=== PATIENT | female | born 1970 | race African-American/Black ===

== ENCOUNTER 2017-02-11 15:36 | Inpatient (IN) | payer OTHER ==
[2017-02-11 19:43] VITALS: BMI 24.5
--- NOTE | 2017-02-11 20:33 | HP ---
COWS - Scale Resting Pulse: 1= OR 81-100 Sweatin=Flushed/Facial Moisture Restless Observation: 3= Extraneous Movement Pupil Size: 1= Pupils >than Normal Bone or Joint Aches: 2= Severe Diffuse Aches Runny Nose/ Eye Tearin= Runny Nose/Eyes GI Upset > 30mins: 2= Nausea/Diarrhea Tremor Observation: 2= Slight Tremor Visible Yawning Observation: 1= 1-2x During Session Anxiety or Irritability: 2=Irritable/Anxious Goose Flesh Skin: 0=Smooth Skin COWS Score: 18 CIWA Score - CIWA Score Nausea/Vomitin Muscle Tremors: 2 Anxiety: 3 Agitation: 2 Paroxysmal Sweats: 1-Minimal Palms Moist Orientation: 0-Oriented Tacttile Disturbances: 2-Mild Itch/Numbness/Burn Auditory Disturbances: 1-Very Mild Visual Disturbances: 1-Very Mild Sensitivity Headache: 1-Very Mild CIWA-Ar Total Score: 15 Admission ROS S - HPI Chief Complaint: WITHDRAWAL SYMPTOMS Allergies/Adverse Reactions: Allergies Allergy/AdvReac Type Severity Reaction Status Date / Time No Known Drug Allergies Allergy Verified 02/11/17 19:52 ALL NUTS Allergy Severe Hives Uncoded 02/11/17 19:57 History of Present Illness: 46 Y.O. WOMAN WITH A HISTORY OF OPIATE, BENZODIAZEPINE, ALCOHOL, COCAINE AND MARIJUANA DEPENDENCE IS HERE SEEKING DETOX. CLIENT HAS BEEN PRESCRIBED 30MG OF OXYCODONE FOR THE LAST YEAR BY HER PCP (VERIFIED THRU [employer]) AND SHE LAST RECEIVED WAS PRESCRIBED 90 TABLETS ON 01/09/17. PT. STATED SHE WAS TAKING MORE OF THE MEDICATION THAN IS PRESCRIBED AND BROUGHT IN A EMPTY BOTTLE. SHE STATES THAT HER PCP ADVISED HER TO SEEK DETOX SERVICES AND STATES SHE WILL NO LONGER BE RECEIVING THE OXYCODONE PRESCRIPTION. PT. IS C/O WITHDRAWAL SYMPTOMS. . Exam Limitations: No Limitations - Ebola screening Have you traveled outside of the country in the last 21 days: No (N) Have you had contact with anyone from an Ebola affected area: No Have you been sick,other than usual withdrawal symptoms: No Do you have a fever: No - Review of Systems Constitutional: Chills, Loss of Appetite, Changes in sleep, Unexplained wgt Loss EENT: reports: Blurred Vision, Double Vision, Tearing, Nose Congestion Respiratory: reports: Cough, Shortness of Breath Cardiac: reports: No Symptoms Reported GI: reports: Constipated : reports: No Symptoms Reported Musculoskeletal: reports: Back Pain, Joint Pain, Joint Swelling Integumentary: reports: No Symptoms Reported Neuro: reports: Numbness, Tingling, Tremors Endocrine: reports: No Symptoms Reported Hematology: reports: Easy Bleeding, Easy Bruising Psychiatric: reports: Orientated x3, Anxious, Depressed, other (BIPOLAR AND SCHIZOPHRENIA) Other Systems: Reviewed and Negative Patient History - Patient Medical History Hx Anemia: No Hx Asthma: Yes Hx Chronic Obstructive Pulmonary Disease (COPD): No Hx Cancer: No Hx Cardiac Disorders: No Hx Congestive Heart Failure: No Hx Hypertension: No Hx Hypercholesterolemia: No Hx Pacemaker: No HX Cerebrovascular Accident: No Hx Seizures: No Hx Dementia: No Hx Diabetes: No Hx Gastrointestinal Disorders: Yes (gastric ulcer) Hx Liver Disease: No Hx Genitourinary Disorders: No Hx Sexually Transmitted Disorders: No Hx Renal Disease (ESRD): No Hx Thyroid Disease: No Hx Human Immunodeficiency Virus (HIV): No Hx Hepatitis C: No Hx Depression: Yes Hx Suicide Attempt: No Hx Bipolar Disorder: Yes Hx Schizophrenia: No - Patient Surgical History Past Surgical History: No Hx Neurologic Surgery: No Hx Cataract Extraction: No Hx Cardiac Surgery: No Hx Lung Surgery: No Hx Breast Surgery: No Hx Breast Biopsy: No Hx Abdominal Surgery: No Hx Appendectomy: No Hx Cholecystectomy: No Hx Genitourinary Surgery: No Hx Section: No Hx Orthopedic Surgery: No Anesthesia Reaction: No - PPD History Previous Implant?: Yes Documented Results: Negative w/o proof Date: 09/21/12 Results: 0mm PPD to be Administered?: Yes - Reproductive History Patient is a Female of Child Bearing Age (11 -55 yrs old): No Last Menstrual Period: 02/09/17 Patient : No - Smoking Cessation Smoking history: Current every day smoker Have you smoked in the past 12 months: Yes Aproximately how many cigarettes per day: 20 Hx Chewing Tobacco Use: No Initiated information on smoking cessation: Yes 'Breaking Loose' booklet given: 02/11/17 - Substance & Tx. History Hx Alcohol Use: Yes Hx Substance Use: Yes Substance Use Type: Alcohol, Cocaine, Marijuana, Opiates, Prescribed Hx Substance Use Treatment: Yes (REHAB: 2014) - Substances Abused Alprazolam (Xanax) Route: Oral Frequency: Daily Amount used: 2 sticks Age of first use: 40 Date of Last Use: 02/09/17 Cocaine Route: Smoking Frequency: Daily Amount used: $100 Age of first use: 25 Date of Last Use: 02/11/17 Marijuana/Hashish Route: Smoking Frequency: Daily Amount used: $30 Age of first use: 25 Date of Last Use: 02/11/17 Alcohol Route: Oral Frequency: Daily Amount used: vodka 1 pint Age of first use: 14 Date of Last Use: 02/11/17 oxycodone Route: Oral Frequency: Daily Amount used: 30mg Age of first use: 25 Date of Last Use: 02/09/17 Family Disease History - Family Disease History Family Disease History: Other: Father (DRUG,ALCOHOL), Mother (DRUG,ALCOHOL,MS, SCIZOPHRENIA) Admission Physical Exam [facility] - Vital Signs Vital Signs: Vital Signs - 24 hr 02/11/17 19:40 Temperature 98.3 F Pulse Rate 83 Respiratory 18 Rate Blood Pressure 100/75 - Physical General Appearance: Yes: Irritable, Anxious HEENTM: Yes: Hearing grossly Normal, Normocephalic Respiratory: Yes: Chest Non-Tender, Lungs Clear, Normal Breath Sounds, No Respiratory Distress, No Accessory Muscle Use Neck: Yes: No masses,lesions,Nodules Breast: Yes: Breast Exam Deferred Cardiology: Yes: Regular Rhythm, Regular Rate Abdominal: Yes: Normal Bowel Sounds, Non Tender Genitourinary: Yes: Other Back: Yes: Within Normal Limits, Normal Inspection Musculoskeletal: Yes: Back pain, Joint swelling, Muscle Pain, Muscle weakness Extremities: Yes: Normal Inspection, Normal Range of Motion, Non-Tender Neurological: Yes: Numbness Integumentary: Yes: Normal Color, Dry, Warm Lymphatic: Yes: Within Normal Limits - Diagnostic (1) Alcohol dependence with uncomplicated withdrawal Current Visit: Yes Status: Chronic (2) Opioid dependence with withdrawal Current Visit: Yes Status: Chronic (3) Sedative, hypnotic or anxiolytic dependence with withdrawal, uncomplicated Current Visit: Yes Status: Chronic (4) Asthma Current Visit: Yes Status: Chronic (5) Cocaine dependence Current Visit: Yes Status: Chronic (6) Marijuana dependence Current Visit: Yes Status: Chronic (7) Rheumatoid arthritis Current Visit: Yes Status: Chronic (8) SLE (systemic lupus erythematosus) Current Visit: Yes Status: Chronic Cleared for Admission [facility] - Detox or Rehab [facility] Level of Care: Medically Managed Detox Regimen/Protocol: Methadone/Valium [facility] Breath Alcohol Content Breath Alcohol Content: 0.025 Urine Pregancy Test - Result Urine Test Results: Negative- NO Line Present Urine Drug Screen - Results Drug Screen Negative: No Urine Drug Screen Results: THC-Marijuana, YADIRA-Cocaine, BZO-Benzodiazepines, OXY- Oxycodone
[2017-02-11] MEDS ORDERED: MENTHOL/PHENOL 1 EACH UD MM PRN (20:44)
[2017-02-11] MEDS ORDERED: LOPERAMIDE HCL 2 MG CAPSULE PO PRN (20:44)
[2017-02-11] MEDS ORDERED: guaiFENesin/D-METHORPHAN HB 10 ML UNIT-DOSE CUPS PO PRN (20:44)
[2017-02-11] MEDS ORDERED: P-EPHED 60MG/TRIPROLIDI 2.5MG TABLET PO PRN (20:44)
[2017-02-11] MEDS ORDERED: MAG HYDROX/AL HYDROX/SIMETH 30 ML UNIT-DOSE CUP PO PRN (20:44)
[2017-02-11] MEDS ORDERED: METHADONE HCL 10 MG TABLET (FOR DETOX USE ONLY) PO ONE ×2 (20:44→23:00)
[2017-02-11] MEDS ORDERED: ACETAMINOPHEN 325 MG TABLET (FP) PO PRN (20:44)
[2017-02-11] MEDS ORDERED: MAGNESIUM HYDROX 2400MG/30ML ORAL SUSPENSION 30 ML CUP PO PRN (20:44)
[2017-02-11] MEDS ORDERED: hydrOXYzine PAMOATE 50 MG CAPSULE (FP) PO PRN (20:44)
[2017-02-11] MEDS ORDERED: MAGNESIUM CITRATE 300 ML BOTTLE PO PRN (20:44)
[2017-02-11] MEDS ORDERED: diazePAM 5 MG TABLET PO ONE (20:44)
[2017-02-11] MEDS ORDERED: NICOTINE POLACRILEX 2 MG GUM BC PRN (20:44)
[2017-02-11] MEDS ORDERED: IBUPROFEN 400 MG TABLET (FP) PO PRN (20:44)
[2017-02-11] MEDS ORDERED: ALBUTEROL SO4 18 GM HFA INHALER IH PRN (20:47)
[2017-02-11 23:51] LABS: URINE APPEARANCE CLEAR; URINE BILIRUBIN NEGATIVE (NEGATIVE); URINE BLOOD NEGATIVE (NEGATIVE); URINE COLOR LT. YELLOW; URINE GLUCOSE (UA) NEGATIVE (NEGATIVE); URINE KETONE TRACE (NEGATIVE); URINE NITRITE NEGATIVE (NEGATIVE); URINE PROTEIN TRACE (NEGATIVE); URINE UROBILINOGEN 0.2 mg/dL (0.2-1.0)
[2017-02-12] MEDS: diazePAM 5 MG TABLET PO SCH ×4 (07:03→22:31)
--- NOTE | 2017-02-12 08:58 | EKG ---
Test Reason : Blood Pressure : / mmHG Vent. Rate : 076 BPM Atrial Rate : 076 BPM P-R Int : 134 ms QRS Dur : 082 ms QT Int : 414 ms P-R-T Axes : 068 056 061 degrees QTc Int : 465 ms NORMAL SINUS RHYTHM NORMAL ECG NO PREVIOUS ECGS AVAILABLE Confirmed by LUIS ANTONIO FIORE, ANYI ([id number]) on 02/12/2017 8:58:02 AM Referred By: Confirmed By:ANYI SALMON MD
--- NOTE | 2017-02-12 08:58 | PN ---
[facility] CIWA - CIWA Score Nausea/Vomitin-Mild Nausea/No Vomiting Muscle Tremors: 3 Anxiety: 3 Agitation: 3 Paroxysmal Sweats: 1-Minimal Palms Moist Orientation: 0-Oriented Tacttile Disturbances: 0-None Auditory Disturbances: 0-None Visual Disturbances: 0-None Headache: 0-None Present CIWA-Ar Total Score: 11 [facility] COWS - Scale Resting Pulse: 1= HI 81-100 Sweatin= Chills/Flushing Restless Observation: 1= Difficult to Sit Still Pupil Size: 0= Normal to Room Light Bone or Joint Aches: 2= Severe Diffuse Aches Runny Nose/ Eye Tearin= Runny Nose/Eyes GI Upset > 30mins: 2= Nausea/Diarrhea Tremor Observation of Outstretched Hands: 2= Slight Tremor Visible Yawning Observation: 1= 1-2x During Session Anxiety or Irritability: 2=Irritable/Anxious Goose Flesh Skin: 0=Smooth Skin COWS Score: 14 [facility] Progress Note (SOAP) Subjective: sweat aggitation tremor anxiety Objective: 02/12/17 09:04 Vital Signs Temperature 98.4 F 02/12/17 06:18 Pulse Rate 85 02/12/17 06:18 Respiratory Rate 18 02/12/17 06:18 Blood Pressure 107/61 02/12/17 06:18 O2 Sat by Pulse Oximetry (%) Laboratory Last Values Urine Color Lt. yellow 02/11/17 22:29 Urine Appearance Clear 02/11/17 22:29 Urine pH 6.0 (5.0-8.0) 02/11/17 22:29 Ur Specific [place] >= 1.030 (1.001-1.035) 02/11/17 22:29 Urine Protein Trace (NEGATIVE) H 02/11/17 22:29 Urine Glucose (UA) Negative (NEGATIVE) 02/11/17 22:29 Urine Ketones Trace (NEGATIVE) H 02/11/17 22:29 Urine Blood Negative (NEGATIVE) 02/11/17 22:29 Urine Nitrite Negative (NEGATIVE) 02/11/17 22:29 Urine Bilirubin Negative (NEGATIVE) 02/11/17 22:29 Urine Urobilinogen 0.2 mg/dL (0.2-1.0) 02/11/17 22:29 lab noted Assessment: 02/12/17 09:04 withdrawal sx Plan: continue detox
[2017-02-12] MEDS ORDERED: METHADONE HCL 10 MG TABLET (FOR DETOX USE ONLY) PO SCH (10:00)
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
[2017-02-12 11:38] LABS: MCH 30.5 pg (25.7-33.7); MCHC 32.8 g/dl (32.0-36.0); MEAN PLT VOLUME 9.2 fl (7.5-11.1); PLATELET COUNT 342 K/MM3 (134-434); RDW 14.3 % (11.6-15.6); WHITE BLOOD COUNT 5.1 K/mm3 (4.0-10.0)
[2017-02-12 12:03] LABS: CALCIUM 8.7 mg/dL (8.5-10.1)
[2017-02-12 12:09] LABS: ALBUMIN 3.2 g/dl (3.4-5.0); ALK PHOS 96 U/L (45-117); ANION GAP 8 (8-16); BILIRUBIN,TOTAL 0.3 mg/dL (0.2-1.0); CO2 27 mmol/L (21-32); CREATININE 0.8 mg/dL (0.55-1.02); GLUCOSE,RANDOM 108 mg/dL (74-106); SGOT/AST 15 U/L (15-37); SGPT/ALT 13 U/L (12-78); TOT PROT 6.7 g/dl (6.4-8.2)
[2017-02-12 12:19] LABS: URINE LEUK ESTERASE Negative (NEGATIVE)
[2017-02-12 12:23] LABS: HIV 1 & 2 AB NEGATIVE; HIV 1 AGp24 NEGATIVE
[2017-02-12] MEDS: predniSONE 20 MG TABLET (UD) PO SCH (12:40)
[2017-02-12] MEDS: PRENATAL VITAMINS W/ FOLIC ACID TABLET (FP) PO SCH (12:40)
[2017-02-12] MEDS ORDERED: METHADONE HCL 10 MG TABLET (FOR DETOX USE ONLY) ONE (12:42)
[2017-02-12] MEDS: diazePAM 5 MG TABLET PO PRN (12:43)
[2017-02-12] MEDS: SERTRALINE HCL 50 MG TABLET (FP) PO SCH ×2 (12:43→22:31)
[2017-02-12] MEDS: lamoTRIgine 100 MG TABLET (FP) PO SCH (12:43)
[2017-02-12] MEDS: QUEtiapine FUMARATE 100 MG TABLET (FP) PO SCH (22:31)
[2017-02-12] MEDS: THIAMINE HCL 100 MG TABLET (FP) PO SCH ×2 (22:31)
[2017-02-13] MEDS ORDERED: METHADONE HCL 5 MG TABLET (FOR DETOX USE ONLY) PO SCH (10:00)
[2017-02-13] MEDS: lamoTRIgine 100 MG TABLET (FP) PO SCH (10:51)
[2017-02-13] MEDS: diazePAM 5 MG TABLET PO SCH ×2 (10:51→22:30)
[2017-02-13] MEDS: SERTRALINE HCL 50 MG TABLET (FP) PO SCH ×2 (10:52→22:31)
[2017-02-13] MEDS: PRENATAL VITAMINS W/ FOLIC ACID TABLET (FP) PO SCH (10:52)
[2017-02-13] MEDS: QUEtiapine FUMARATE 100 MG TABLET (FP) PO SCH ×2 (10:52→22:31)
[2017-02-13] MEDS: predniSONE 20 MG TABLET (UD) PO SCH (10:52)
--- NOTE | 2017-02-13 13:24 | PN ---
[facility] CIWA - CIWA Score Nausea/Vomitin-No Nausea/No Vomiting Muscle Tremors: 4-Moderate,w/Arms Extend Anxiety: 3 Agitation: 3 Paroxysmal Sweats: 2 Orientation: 0-Oriented Tacttile Disturbances: 0-None Auditory Disturbances: 0-None Visual Disturbances: 0-None Headache: 0-None Present CIWA-Ar Total Score: 12 S Progress Note (SOAP) Subjective: sweats groggy interrupted sleep I dont abuse my pain medication i dont want the methadone. Objective: 02/13/17 13:23 Vital Signs Temperature 98.1 F 02/13/17 09:47 Pulse Rate 71 02/13/17 09:47 Respiratory Rate 18 02/13/17 09:47 Blood Pressure 140/63 02/13/17 09:47 O2 Sat by Pulse Oximetry (%) Laboratory Tests 02/11/17 02/12/17 02/12/17 22:29 08:45 08:45 WBC 5.1 D RBC 4.24 Hgb 12.9 Hct 39.4 MCV 93.0 MCH 30.5 MCHC 32.8 RDW 14.3 Plt Count 342 MPV 9.2 Sodium Potassium Chloride Carbon Dioxide Anion Gap BUN Creatinine Creat Clearance w eGFR Random Glucose Calcium Total Bilirubin AST ALT Alkaline Phosphatase Total Protein Albumin Urine Color Lt. yellow Urine Appearance Clear Urine pH 6.0 Ur Specific [place] >= 1.030 Urine Protein Trace H Urine Glucose (UA) Negative Urine Ketones Trace H Urine Blood Negative Urine Nitrite Negative Urine Bilirubin Negative Urine Urobilinogen 0.2 Ur Leukocyte Esterase Negative RPR Titer HIV 1&2 Antibody Screen Negative HIV P24 Antigen Negative 02/12/17 02/12/17 08:45 08:45 WBC RBC Hgb Hct MCV MCH MCHC RDW Plt Count MPV Sodium 142 Potassium 4.0 Chloride 107 Carbon Dioxide 27 Anion Gap 8 BUN 9 D Creatinine 0.8 D Creat Clearance w eGFR > 60 Random Glucose 108 H D Calcium 8.7 Total Bilirubin 0.3 D AST 15 D ALT 13 D Alkaline Phosphatase 96 Total Protein 6.7 Albumin 3.2 L Urine Color Urine Appearance Urine pH Ur Specific [place] Urine Protein Urine Glucose (UA) Urine Ketones Urine Blood Urine Nitrite Urine Bilirubin Urine Urobilinogen Ur Leukocyte Esterase RPR Titer Nonreactive HIV 1&2 Antibody Screen HIV P24 Antigen aaox3 ambulating no acute distress Assessment: 02/13/17 13:23 withdrawal sx Plan: continue detox methadone d/c as per pt request increase fluids
[2017-02-13] MEDS: THIAMINE HCL 100 MG TABLET (FP) PO SCH (22:30)
[2017-02-13] MEDS: predniSONE 10 MG TABLET (UD) PO SCH (23:20)
[2017-02-14] MEDS: diazePAM 5 MG TABLET PO PRN (05:36)
[2017-02-14] MEDS: lamoTRIgine 100 MG TABLET (FP) PO SCH (10:39)
[2017-02-14] MEDS: QUEtiapine FUMARATE 100 MG TABLET (FP) PO SCH ×2 (10:39→22:27)
[2017-02-14] MEDS: predniSONE 10 MG TABLET (UD) PO SCH ×2 (10:39→22:27)
[2017-02-14] MEDS: diazePAM 5 MG TABLET PO SCH ×2 (10:40→22:27)
[2017-02-14] MEDS: PRENATAL VITAMINS W/ FOLIC ACID TABLET (FP) PO SCH (10:40)
[2017-02-14] MEDS: SERTRALINE HCL 50 MG TABLET (FP) PO SCH ×2 (10:40→22:27)
--- NOTE | 2017-02-14 12:16 | PN ---
[facility] Progress Note (SOAP) Subjective: I feel so much better little sweats Objective: 02/14/17 12:15 Vital Signs Temperature 97.9 F 02/14/17 09:36 Pulse Rate 76 02/14/17 09:36 Respiratory Rate 18 02/14/17 09:36 Blood Pressure 106/70 02/14/17 09:36 O2 Sat by Pulse Oximetry (%) aaox3 ambulating no acute distress Assessment: 02/14/17 12:15 mild withdrawal sx Plan: continue detox increase fluids d/c in am
[2017-02-14] MEDS: THIAMINE HCL 100 MG TABLET (FP) PO SCH (22:27)
[2017-02-15] MEDS: SERTRALINE HCL 50 MG TABLET (FP) PO SCH (09:33)
[2017-02-15] MEDS: lamoTRIgine 100 MG TABLET (FP) PO SCH (09:34)
[2017-02-15] MEDS: predniSONE 10 MG TABLET (UD) PO SCH (09:34)
[2017-02-15] MEDS: PRENATAL VITAMINS W/ FOLIC ACID TABLET (FP) PO SCH (09:34)
[2017-02-15] MEDS: QUEtiapine FUMARATE 100 MG TABLET (FP) PO SCH (09:34)
--- NOTE | 2017-02-15 09:52 | DS ---
[facility] Detox Discharge Summary Admission Date: 02/11/17 Discharge Date: 02/15/17 - History Present History: Alcohol Dependence, Cannabis Dependence, Cocaine Dependence, Sedative Dependence - Physical Exam Results Vital Signs: Vital Signs Temperature 97.9 F 02/15/17 06:31 Pulse Rate 94 H 02/15/17 06:31 Respiratory Rate 20 02/15/17 06:31 Blood Pressure 126/74 02/15/17 06:31 O2 Sat by Pulse Oximetry (%) - Treatment Hospital Course: Detox Protocol Followed, Detoxed Safely, Responded well, Discharged Condition Good, Rehab Referral Accepted - Medication Discharge Medications: Ambulatory Orders Albuterol Sulfate Inhaler - [Ventolin HFA Inhaler -] 2 inh PO Q4H PRN 06/05/13 Prednisone [Deltasone -] 10 mg PO DAILY 06/05/13 Sertraline HCl [Zoloft -] 100 mg PO BID 06/05/13 Lamotrigine [Lamictal] 100 mg PO DAILY 02/11/17 Lamotrigine [Lamictal] 100 mg PO DAILY #30 tablet 02/12/17 Quetiapine Fumarate [Seroquel -] 200 mg PO BID #60 tab 02/12/17 Sertraline HCl [Zoloft] 100 mg PO BID #60 tablet 02/12/17 - Diagnosis (1) Alcohol dependence with uncomplicated withdrawal Current Visit: Yes Status: Chronic (2) Cannabis dependence Current Visit: Yes Status: Chronic (3) Cocaine dependence Current Visit: Yes Status: Chronic Qualifiers: Substance use status: uncomplicated Qualified Code(s): F14.20 - Cocaine dependence, uncomplicated (4) Sedative, hypnotic or anxiolytic dependence with withdrawal, uncomplicated Current Visit: Yes Status: Acute (5) Asthma Current Visit: Yes Status: Chronic Qualifiers: Asthma severity: mild Asthma complication type: uncomplicated (6) Nicotine dependence Current Visit: Yes Status: Chronic Qualifiers: Nicotine product type: cigarettes Substance use status: uncomplicated Qualified Code(s): F17.210 - Nicotine dependence, cigarettes, uncomplicated (7) Rheumatoid arthritis Current Visit: Yes Status: Chronic (8) SLE (systemic lupus erythematosus) Current Visit: Yes Status: Chronic (9) Fibromyalgia Current Visit: No Status: Acute (10) Bipolar affective disorder Current Visit: No Status: Chronic - AMA Did Patient Leave Against Medical Advice: No
[2017-02-15] MEDS ORDERED: diazePAM 5 MG TABLET PO SCH (10:00)
[2017-02-15] MEDS ORDERED: METHADONE HCL 10 MG TABLET (FOR DETOX USE ONLY) PO SCH (10:00)
[2017-02-15 10:19] VITALS: BP 122/71; PULSE 83; TEMP 97.6
[2017-02-16] MEDS ORDERED: METHADONE HCL 5 MG TABLET (FOR DETOX USE ONLY) PO SCH (06:00)
== END 2017-02-15 09:55 | disposition home or self-care (01) | DRG 773 ==
LOC: YASAS 15:36 → Y6N 19:44
PROVIDERS: ADMIT Internal Medicine; ATTEND Internal Medicine
PROC: HZ2ZZZZ Detoxification Services for Substance Abuse Treatment (ICD-10-PCS; principal; 2017-02-11)
DX: F11.23 Opioid dependence with withdrawal (principal); F13.230 Sedative, hypnotic or anxiolytic dependence with withdrawal, uncomplicated; F10.230 Alcohol dependence with withdrawal, uncomplicated; F14.20 Cocaine dependence, uncomplicated; F12.20 Cannabis dependence, uncomplicated; F17.210 Nicotine dependence, cigarettes, uncomplicated; F31.9 Bipolar disorder, unspecified; M32.9 Systemic lupus erythematosus, unspecified; M06.9 Rheumatoid arthritis, unspecified; M79.7 Fibromyalgia
CPT/HCPCS: 36415; 80053; 81003; 85027; 86593; 87389; 93005; 93010

== ENCOUNTER 2017-02-15 13:43 | Inpatient (IN) | payer OTHER ==
[2017-02-15 16:55] VITALS: BMI 24.5
--- NOTE | 2017-02-15 18:20 | HP ---
RACHEL FIORE Rehab Assess/Revision - Admission History Admitted to Rehab from: [facility] Date of Admission to Rehab: 02/15/17 - Vital signs Vital Signs: Vital Signs Period Temp Pulse Resp BP Sys/Lan Pulse Ox Last 24 Hr 98.1 F 90 18 128/74 - Findings Detox History & Physical reviewed: Yes Concur with findings: Yes Comments/Additional Findings: COMPLETED DETOX. ADMITTED TO REHAB PER PROTOCOL
[2017-02-15] MEDS ORDERED: P-EPHED 60MG/TRIPROLIDI 2.5MG TABLET PO PRN (18:21)
[2017-02-15] MEDS ORDERED: MAG HYDROX/AL HYDROX/SIMETH 30 ML UNIT-DOSE CUP PO PRN (18:21)
[2017-02-15] MEDS ORDERED: ACETAMINOPHEN 325 MG TABLET (FP) PO PRN (18:21)
[2017-02-15] MEDS ORDERED: IBUPROFEN 400 MG TABLET (FP) PO PRN (18:21)
[2017-02-15] MEDS ORDERED: MAGNESIUM HYDROX 2400MG/30ML ORAL SUSPENSION 30 ML CUP PO PRN (18:21)
[2017-02-15] MEDS ORDERED: guaiFENesin/D-METHORPHAN HB 10 ML UNIT-DOSE CUPS PO PRN (18:21)
[2017-02-15] MEDS ORDERED: LOPERAMIDE HCL 2 MG CAPSULE PO PRN (18:21)
[2017-02-15] MEDS ORDERED: MAGNESIUM CITRATE 300 ML BOTTLE PO PRN (18:21)
--- NOTE | 2017-02-15 18:21 | HP ---
RACHEL FIORE Rehab Assess/Revision - Vital signs Vital Signs: Vital Signs Period Temp Pulse Resp BP Sys/Lan Pulse Ox Last 24 Hr 98.1 F 90 18 128/74 Inpatient Rehab Admission - Initial Determination Are CD services needed?: Yes Free of communicable disease: Yes Not in need of hospitalization: Yes - Rehab Admission Criteria Previous failed treatment: Yes Poor recovery environment: Yes Comorbidities: Yes Lacks judgement: No Patient is meeting Inpatient Rehab admission criteria:: Yes
[2017-02-15] MEDS ORDERED: ALBUTEROL SO4 18 GM HFA INHALER IH PRN (18:22)
[2017-02-15] MEDS: THIAMINE HCL 100 MG TABLET (FP) PO SCH (22:10)
[2017-02-15] MEDS: QUEtiapine FUMARATE 200 MG TABLET PO SCH (22:11)
[2017-02-15] MEDS: SERTRALINE HCL 50 MG TABLET (FP) PO SCH (22:11)
[2017-02-15 23:38] LABS: URINE APPEARANCE CLEAR; URINE BILIRUBIN NEGATIVE (NEGATIVE); URINE BLOOD NEGATIVE (NEGATIVE); URINE COLOR STRAW; URINE GLUCOSE (UA) NEGATIVE (NEGATIVE); URINE KETONE NEGATIVE (NEGATIVE); URINE LEUK ESTERASE NEGATIVE (NEGATIVE); URINE NITRITE NEGATIVE (NEGATIVE); URINE PROTEIN NEGATIVE (NEGATIVE); URINE UROBILINOGEN NEGATIVE mg/dL (0.2-1.0)
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
[2017-02-16] MEDS: NICOTINE 21 MG/24 HOURS TOPICAL PATCH TD SCH (09:58)
[2017-02-16] MEDS: SERTRALINE HCL 50 MG TABLET (FP) PO SCH ×2 (09:58→21:59)
[2017-02-16] MEDS: QUEtiapine FUMARATE 200 MG TABLET PO SCH ×2 (09:58→22:00)
[2017-02-16] MEDS: predniSONE 10 MG TABLET (UD) PO SCH (09:58)
[2017-02-16] MEDS: NICOTINE POLACRILEX 4 MG GUM BUC PRN (09:58)
[2017-02-16] MEDS: PRENATAL VITAMINS W/ FOLIC ACID TABLET (FP) PO SCH (09:58)
[2017-02-16] MEDS: lamoTRIgine 100 MG TABLET (FP) PO SCH (10:33)
[2017-02-16] MEDS: OXYBUTYNIN CHLORIDE 5 MG TABLET PO SCH (10:33)
[2017-02-16 15:14] LABS: URINE LEUK ESTERASE Negative (NEGATIVE)
[2017-02-16] MEDS: THIAMINE HCL 100 MG TABLET (FP) PO SCH (21:59)
[2017-02-17] MEDS: PRENATAL VITAMINS W/ FOLIC ACID TABLET (FP) PO SCH (10:15)
[2017-02-17] MEDS: OXYBUTYNIN CHLORIDE 5 MG TABLET PO SCH (10:15)
[2017-02-17] MEDS: QUEtiapine FUMARATE 200 MG TABLET PO SCH ×2 (10:15→21:26)
[2017-02-17] MEDS: SERTRALINE HCL 50 MG TABLET (FP) PO SCH ×2 (10:15→21:26)
[2017-02-17] MEDS: predniSONE 10 MG TABLET (UD) PO SCH (10:15)
[2017-02-17] MEDS: lamoTRIgine 100 MG TABLET (FP) PO SCH (10:15)
[2017-02-17] MEDS: NICOTINE 21 MG/24 HOURS TOPICAL PATCH TD SCH (10:16)
[2017-02-17] MEDS: NICOTINE POLACRILEX 4 MG GUM BUC PRN (13:35)
[2017-02-17] MEDS: THIAMINE HCL 100 MG TABLET (FP) PO SCH (21:26)
[2017-02-18 06:53] VITALS: TEMP 98.3
[2017-02-18] MEDS: PRENATAL VITAMINS W/ FOLIC ACID TABLET (FP) PO SCH (09:43)
[2017-02-18] MEDS: SERTRALINE HCL 50 MG TABLET (FP) PO SCH ×2 (09:43→21:36)
[2017-02-18] MEDS: predniSONE 10 MG TABLET (UD) PO SCH (09:44)
[2017-02-18] MEDS: QUEtiapine FUMARATE 200 MG TABLET PO SCH ×2 (09:44→21:36)
[2017-02-18] MEDS: MENTHOL/PHENOL 1 EACH UD MM PRN ×2 (09:44→21:38)
[2017-02-18] MEDS: OXYBUTYNIN CHLORIDE 5 MG TABLET PO SCH (09:44)
[2017-02-18] MEDS: lamoTRIgine 100 MG TABLET (FP) PO SCH (09:44)
[2017-02-18] MEDS: NICOTINE 21 MG/24 HOURS TOPICAL PATCH TD SCH (09:45)
[2017-02-18] MEDS: THIAMINE HCL 100 MG TABLET (FP) PO SCH (21:35)
[2017-02-19 06:47] VITALS: PULSE 83
[2017-02-19] MEDS: lamoTRIgine 100 MG TABLET (FP) PO SCH (09:54)
[2017-02-19] MEDS: OXYBUTYNIN CHLORIDE 5 MG TABLET PO SCH (09:54)
[2017-02-19] MEDS: QUEtiapine FUMARATE 200 MG TABLET PO SCH ×2 (09:54→21:25)
[2017-02-19] MEDS: SERTRALINE HCL 50 MG TABLET (FP) PO SCH ×2 (09:54→21:25)
[2017-02-19] MEDS: predniSONE 10 MG TABLET (UD) PO SCH (09:54)
[2017-02-19] MEDS: PRENATAL VITAMINS W/ FOLIC ACID TABLET (FP) PO SCH (09:54)
[2017-02-19] MEDS: NICOTINE POLACRILEX 4 MG GUM BUC PRN (09:54)
[2017-02-19] MEDS: NICOTINE 21 MG/24 HOURS TOPICAL PATCH TD SCH (09:55)
[2017-02-19] MEDS: THIAMINE HCL 100 MG TABLET (FP) PO SCH (21:25)
--- NOTE | 2017-02-20 06:26 | HP ---
Psychiatrist Admission - Data Vital Signs: Vital Signs - 24 hr 02/19/17 02/20/17 06:46 00:30 Temperature 98.3 F Pulse Rate 83 Respiratory 18 16 Rate Blood Pressure 122/70 Allergies/Adverse Reactions: Allergies Allergy/AdvReac Type Severity Reaction Status Date / Time No Known Drug Allergies Allergy Verified 02/15/17 17:30 ALL NUTS Allergy Severe Hives Uncoded 02/15/17 17:30 Psychiatric Findings - Problem List ([employer] 1, 2,3) (1) Alcohol dependence Current Visit: Yes Status: Acute (2) Opioid dependence Current Visit: Yes Status: Acute (3) Cocaine dependence Current Visit: Yes Status: Acute (4) Sedative, hypnotic or anxiolytic dependence Current Visit: Yes Status: Acute (5) Cannabis dependence Current Visit: Yes Status: Acute (6) Nicotine dependence Current Visit: No Status: Chronic Qualifiers: Nicotine product type: cigarettes Substance use status: uncomplicated Qualified Code(s): F17.210 - Nicotine dependence, cigarettes, uncomplicated (7) Bipolar affective disorder Current Visit: No Status: Chronic (8) Fibromyalgia Current Visit: No Status: Chronic (9) Rheumatoid arthritis Current Visit: No Status: Chronic (10) SLE (systemic lupus erythematosus) Current Visit: No Status: Chronic
[2017-02-20 07:09] VITALS: BP 113/66
[2017-02-20] MEDS: lamoTRIgine 100 MG TABLET (FP) PO SCH (09:12)
[2017-02-20] MEDS: SERTRALINE HCL 50 MG TABLET (FP) PO SCH (09:12)
[2017-02-20] MEDS: PRENATAL VITAMINS W/ FOLIC ACID TABLET (FP) PO SCH (09:12)
[2017-02-20] MEDS: predniSONE 10 MG TABLET (UD) PO SCH (09:12)
[2017-02-20] MEDS: QUEtiapine FUMARATE 200 MG TABLET PO SCH (09:12)
[2017-02-20] MEDS: OXYBUTYNIN CHLORIDE 5 MG TABLET PO SCH (09:12)
[2017-02-20] MEDS: NICOTINE 21 MG/24 HOURS TOPICAL PATCH TD SCH (09:13)
== END 2017-02-20 09:25 | disposition left against medical advice (07) | DRG 770 ==
LOC: YASAS 13:43 → Y3W 20:05
PROVIDERS: ADMIT Psychiatry & Neurology Psychiatry; ATTEND Psychiatry & Neurology Psychiatry
PROC: HZ42ZZZ Group Counseling for Substance Abuse Treatment, Cognitive-Behavioral (ICD-10-PCS; principal; 2017-02-15)
DX: F11.20 Opioid dependence, uncomplicated (principal); F13.20 Sedative, hypnotic or anxiolytic dependence, uncomplicated; F10.20 Alcohol dependence, uncomplicated; F14.20 Cocaine dependence, uncomplicated; F12.20 Cannabis dependence, uncomplicated; F17.210 Nicotine dependence, cigarettes, uncomplicated; F31.9 Bipolar disorder, unspecified; M06.9 Rheumatoid arthritis, unspecified; M32.9 Systemic lupus erythematosus, unspecified; M79.7 Fibromyalgia
CPT/HCPCS: 81003

== ENCOUNTER 2017-08-16 10:43 | Inpatient (IN) | payer OTHER ==
[2017-08-16 13:54] VITALS: BMI 23.8
--- NOTE | 2017-08-16 15:28 | HP ---
Admission ROS [facility] Chief Complaint: I WANT TO GO TO REHAB Allergies/Adverse Reactions: Allergies Allergy/AdvReac Type Severity Reaction Status Date / Time No Known Drug Allergies Allergy Verified 08/16/17 15:38 ALL NUTS Allergy Severe Hives Uncoded 08/16/17 15:38 History of Present Illness: 46 YEARS OLD WITH LONG HISTORY OF COCAINE NICOTINE DEPENDENCE HAS LUPUS ASTHMA AND DEPRESSION IS ADMITTED TO REHAB Exam Limitations: No Limitations - Ebola screening Have you traveled outside of the country in the last 21 days: No (N) Have you had contact with anyone from an Ebola affected area: No Have you been sick,other than usual withdrawal symptoms: No Do you have a fever: No - Review of Systems Constitutional: Loss of Appetite, Unintentional Wgt. Loss, Unexplained wgt Loss EENT: reports: Blurred Vision (EYE GLASSES) Respiratory: reports: No Symptoms reported Cardiac: reports: No Symptoms Reported GI: reports: Poor Appetite : reports: No Symptoms Reported Musculoskeletal: reports: No Symptoms Reported Integumentary: reports: No Symptoms Reported Neuro: reports: Seizure (UNKNOWN ORIGIN TREATED WITH LOMOTRIGEN) Endocrine: reports: No Symptoms Reported Hematology: reports: No Symptoms Reported Psychiatric: reports: Judgement Intact, Orientated x3, Depressed Other Systems: Reviewed and Negative Patient History - Patient Medical History Hx Anemia: No Hx Asthma: Yes Hx Chronic Obstructive Pulmonary Disease (COPD): No Hx Cancer: No Hx Cardiac Disorders: No Hx Congestive Heart Failure: No Hx Hypertension: No Hx Hypercholesterolemia: No Hx Pacemaker: No HX Cerebrovascular Accident: No Hx Seizures: No Hx Dementia: No Hx Diabetes: No Hx Gastrointestinal Disorders: No Hx Liver Disease: No Hx Genitourinary Disorders: No Hx Sexually Transmitted Disorders: No Hx Renal Disease (ESRD): No Hx Thyroid Disease: No Hx Human Immunodeficiency Virus (HIV): No Hx Hepatitis C: No Hx Depression: No Hx Suicide Attempt: No Hx Bipolar Disorder: Yes Hx Schizophrenia: No - Patient Surgical History Past Surgical History: No Hx Neurologic Surgery: No Hx Cataract Extraction: No Hx Cardiac Surgery: No Hx Lung Surgery: No Hx Breast Surgery: No Hx Breast Biopsy: No Hx Abdominal Surgery: No Hx Appendectomy: No Hx Cholecystectomy: No Hx Genitourinary Surgery: No Hx Orthopedic Surgery: No - PPD History Previous Implant?: Yes Documented Results: Negative w/proof Implanted On Prior [facility] Admission?: Yes Date: 02/13/17 Results: 0mm PPD to be Administered?: No - Reproductive History Patient is a Female of Child Bearing Age (11 -55 yrs old): Yes Last Menstrual Period: 08/10/17 Patient : No - Smoking Cessation Smoking history: Current every day smoker Have you smoked in the past 12 months: Yes Aproximately how many cigarettes per day: 10 Hx Chewing Tobacco Use: No Initiated information on smoking cessation: Yes 'Breaking Loose' booklet given: 08/16/17 - Substance & Tx. History Hx Alcohol Use: No Hx Substance Use: Yes Substance Use Type: Cocaine Hx Substance Use Treatment: Yes (02/2017 [facility]) Family Disease History - Family Disease History Family Disease History: Respiratory: Mother (DRUG,ALCOHOL,MS,SCIZOPHRENIA), Other: Father (DRUG,ALCOHOL), Mother Admission Physical Exam [facility] - Vital Signs Vital Signs: Vital Signs - 24 hr 08/16/17 13:52 Temperature 97.6 F Pulse Rate 72 Respiratory 18 Rate Blood Pressure 129/72 - Physical General Appearance: Yes: No Apparent Distress, Appropriately Dressed, Thin HEENTM: Yes: Hearing grossly Normal, Normocephalic, Normal Voice, Other (EYE GLASSES) Respiratory: Yes: Chest Non-Tender, No Respiratory Distress, No Accessory Muscle Use, Wheezing, Expiration Neck: Yes: Supple, Trachea in good position Breast: Yes: Breasts Symetrical, No Discharge Cardiology: Yes: Regular Rhythm, Regular Rate, S1, S2 Abdominal: Yes: Normal Bowel Sounds, Non Tender, Flat Genitourinary: Yes: Incontinient (TREATED WITH OXYBUYYNIN) Back: Yes: Normal Inspection Musculoskeletal: Yes: full range of Motion, Gait Steady Extremities: Yes: Normal Inspection, Normal Range of Motion, Non-Tender Neurological: Yes: Fully Oriented, Alert, Motor Strength 5/5, Normal Response, Depressed Affect Integumentary: Yes: Warm Lymphatic: Yes: Within Normal Limits - Diagnostic (1) Cocaine dependence, uncomplicated Current Visit: Yes Status: Acute (2) Weight loss Current Visit: Yes Status: Acute (3) Nicotine dependence Current Visit: Yes Status: Acute Qualifiers: Nicotine product type: cigarettes Substance use status: in withdrawal Qualified Code(s): F17.213 - Nicotine dependence, cigarettes, with withdrawal (4) SLE (systemic lupus erythematosus) Current Visit: Yes Status: Chronic Qualifiers: Systemic lupus erythematosus type: other Systemic lupus erythematosus organ involvement: unspecified Qualified Code(s): M32.8 - Other forms of systemic lupus erythematosus Cleared for Admission [facility] - Detox or Rehab [facility] Level of Care: Observation Bed Detox Regimen/Protocol: Not Applicable Claeared for Rehab Admission: Yes [facility] Breath Alcohol Content Breath Alcohol Content: 0 Urine Pregancy Test - Result Urine Test Results: Negative- NO Line Present Urine Drug Screen - Results Drug Screen Negative: No Urine Drug Screen Results: THC-Marijuana, YADIRA-Cocaine Inpatient Rehab Admission - Initial Determination Are CD services needed?: Yes Free of communicable disease: Yes Not in need of hospitalization: Yes - Rehab Admission Criteria Previous failed treatment: Yes Poor recovery environment: Yes Comorbidities: Yes Lacks judgement: No Patient is meeting Inpatient Rehab admission criteria:: Yes
[2017-08-16] MEDS ORDERED: IBUPROFEN 400 MG TABLET (FP) PO PRN (15:35)
[2017-08-16] MEDS ORDERED: MAGNESIUM HYDROX 2400MG/30ML ORAL SUSPENSION 30 ML CUP PO PRN (15:35)
[2017-08-16] MEDS ORDERED: guaiFENesin/D-METHORPHAN HB 10 ML UNIT-DOSE CUPS PO PRN (15:35)
[2017-08-16] MEDS ORDERED: MENTHOL/PHENOL 1 EACH UD MM PRN (15:35)
[2017-08-16] MEDS ORDERED: ACETAMINOPHEN 325 MG TABLET (FP) PO PRN (15:35)
[2017-08-16] MEDS ORDERED: P-EPHED 60MG/TRIPROLIDI 2.5MG TABLET PO PRN (15:35)
[2017-08-16] MEDS ORDERED: MAGNESIUM CITRATE 300 ML BOTTLE PO PRN (15:35)
[2017-08-16] MEDS ORDERED: LOPERAMIDE HCL 2 MG CAPSULE PO PRN (15:35)
[2017-08-16] MEDS ORDERED: ALBUTEROL SO4 18 GM HFA INHALER IH PRN (15:37)
[2017-08-16] MEDS ORDERED: BACLOFEN 10 MG TABLET (FP) PO PRN (15:56)
[2017-08-16] MEDS: predniSONE 20 MG TABLET (UD) PO SCH (21:40)
[2017-08-16] MEDS: lamoTRIgine 100 MG TABLET (FP) PO SCH ×2 (21:42→21:43)
[2017-08-16] MEDS: OXYBUTYNIN CHLORIDE 5 MG TABLET PO SCH (21:42)
[2017-08-16] MEDS: THIAMINE HCL 100 MG TABLET (FP) PO SCH (21:42)
[2017-08-16] MEDS: NICOTINE 14 MG/24 HOURS TOPICAL PATCH TD SCH (21:43)
[2017-08-16] MEDS ORDERED: lamoTRIgine 100 MG TABLET (FP) PO SCH (22:00)
[2017-08-17] MEDS ORDERED: PT OWN MED DRAWER 7, Y5N ONE ×3 (08:56→22:34)
[2017-08-17] MEDS: predniSONE 20 MG TABLET (UD) PO SCH ×2 (10:23→21:39)
[2017-08-17] MEDS: PRENATAL VITAMINS W/ FOLIC ACID TABLET (FP) PO SCH (10:24)
[2017-08-17] MEDS: NICOTINE 14 MG/24 HOURS TOPICAL PATCH TD SCH (10:25)
[2017-08-17] MEDS: OXYBUTYNIN CHLORIDE 5 MG TABLET PO SCH (10:25)
[2017-08-17 10:31] LABS: CHLORIDE 107 mmol/L (98-107); POTASSIUM 3.9 mmol/L (3.5-5.1); SODIUM 142 mmol/L (136-145)
[2017-08-17 10:34] LABS: HEMATOCRIT 40.7 % (32.4-45.2); HEMOGLOBIN 13.3 GM/dL (10.7-15.3); MCH 30.1 pg (25.7-33.7); MCHC 32.7 g/dl (32.0-36.0); MEAN CELL VOLUME 91.9 fl (80-96); MEAN PLT VOLUME 9.6 fl (7.5-11.1); PLATELET COUNT 319 K/MM3 (134-434); RBC 4.43 M/mm3 (3.60-5.2); RDW 14.4 % (11.6-15.6); WHITE BLOOD COUNT 6.7 K/mm3 (4.0-10.0)
[2017-08-17 10:50] LABS: ALBUMIN 3.6 g/dl (3.4-5.0); ALK PHOS 87 U/L (45-117); ANION GAP 11 (8-16); BILIRUBIN,TOTAL 0.2 mg/dL (0.2-1.0); BLOOD UREA NITROGEN 11 mg/dL (7-18); CO2 24 mmol/L (21-32); CREATININE 0.7 mg/dL (0.55-1.02); GLUCOSE,RANDOM 73 mg/dL (74-106); SGOT/AST 15 U/L (15-37); SGPT/ALT 13 U/L (12-78); TOT PROT 7.4 g/dl (6.4-8.2)
[2017-08-17] MEDS: lamoTRIgine 100 MG TABLET (FP) PO SCH ×2 (10:56→21:37)
--- NOTE | 2017-08-17 11:42 | EKG ---
Test Reason : Blood Pressure : / mmHG Vent. Rate : 076 BPM Atrial Rate : 076 BPM P-R Int : 124 ms QRS Dur : 086 ms QT Int : 382 ms P-R-T Axes : 037 058 063 degrees QTc Int : 429 ms NORMAL SINUS RHYTHM NORMAL ECG WHEN COMPARED WITH ECG OF 11-FEB-2017 21:38, NO SIGNIFICANT CHANGE WAS FOUND Confirmed by TEA VELAZQUEZ MD ([id number]) on 08/17/2017 11:41:45 AM Referred By: Confirmed By:TEA VELAZQUEZ MD
[2017-08-17] MEDS: SERTRALINE HCL 50 MG TABLET (FP) PO SCH ×2 (12:10→21:37)
[2017-08-17] MEDS: QUEtiapine FUMARATE 100 MG TABLET (FP) PO SCH ×2 (12:11→21:37)
[2017-08-17 15:00] LABS: URINE APPEARANCE CLEAR; URINE BILIRUBIN NEGATIVE (<2.0 mg/dL); URINE COLOR STRAW; URINE GLUCOSE (UA) NEGATIVE (NEGATIVE); URINE KETONE NEGATIVE (NEGATIVE); URINE LEUK ESTERASE NEGATIVE (NEGATIVE); URINE NITRITE NEGATIVE (NEGATIVE); URINE PROTEIN NEGATIVE (NEGATIVE); URINE UROBILINOGEN NEGATIVE mg/dL (0.2-1.0)
[2017-08-17] MEDS: THIAMINE HCL 100 MG TABLET (FP) PO SCH (21:38)
[2017-08-18] MEDS ORDERED: PT OWN MED DRAWER 7, Y5N ONE (09:07)
[2017-08-18] MEDS: predniSONE 20 MG TABLET (UD) PO SCH ×2 (10:07→21:12)
[2017-08-18] MEDS: lamoTRIgine 100 MG TABLET (FP) PO SCH ×2 (10:08→21:12)
[2017-08-18] MEDS: OXYBUTYNIN CHLORIDE 5 MG TABLET PO SCH (10:08)
[2017-08-18] MEDS: PRENATAL VITAMINS W/ FOLIC ACID TABLET (FP) PO SCH (10:08)
[2017-08-18] MEDS: NICOTINE 14 MG/24 HOURS TOPICAL PATCH TD SCH (10:08)
[2017-08-18] MEDS: SERTRALINE HCL 50 MG TABLET (FP) PO SCH ×2 (10:09→21:13)
[2017-08-18] MEDS: QUEtiapine FUMARATE 100 MG TABLET (FP) PO SCH ×2 (10:09→21:12)
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
[2017-08-18] MEDS: THIAMINE HCL 100 MG TABLET (FP) PO SCH (21:12)
[2017-08-18] MEDS: MELATONIN 5 MG TABLETS PO PRN (21:14)
[2017-08-19] MEDS: lamoTRIgine 100 MG TABLET (FP) PO SCH ×2 (09:58→21:27)
[2017-08-19] MEDS: predniSONE 20 MG TABLET (UD) PO SCH ×2 (09:58→21:28)
[2017-08-19] MEDS: PRENATAL VITAMINS W/ FOLIC ACID TABLET (FP) PO SCH (09:58)
[2017-08-19] MEDS: SERTRALINE HCL 50 MG TABLET (FP) PO SCH ×2 (09:59→21:27)
[2017-08-19] MEDS: NICOTINE 14 MG/24 HOURS TOPICAL PATCH TD SCH (09:59)
[2017-08-19] MEDS: QUEtiapine FUMARATE 100 MG TABLET (FP) PO SCH ×2 (09:59→21:27)
[2017-08-19] MEDS: OXYBUTYNIN CHLORIDE 5 MG TABLET PO SCH (09:59)
[2017-08-19] MEDS: THIAMINE HCL 100 MG TABLET (FP) PO SCH (21:27)
[2017-08-19] MEDS: MAG HYDROX/AL HYDROX/SIMETH 30 ML UNIT-DOSE CUP PO PRN (21:29)
[2017-08-20] MEDS: lamoTRIgine 100 MG TABLET (FP) PO SCH ×2 (09:43→21:35)
[2017-08-20] MEDS: OXYBUTYNIN CHLORIDE 5 MG TABLET PO SCH (09:43)
[2017-08-20] MEDS: QUEtiapine FUMARATE 100 MG TABLET (FP) PO SCH ×2 (09:43→21:35)
[2017-08-20] MEDS: PRENATAL VITAMINS W/ FOLIC ACID TABLET (FP) PO SCH (09:43)
[2017-08-20] MEDS: SERTRALINE HCL 50 MG TABLET (FP) PO SCH ×2 (09:44→21:35)
[2017-08-20] MEDS: predniSONE 20 MG TABLET (UD) PO SCH ×2 (09:44→21:36)
[2017-08-20] MEDS: NICOTINE 14 MG/24 HOURS TOPICAL PATCH TD SCH (09:45)
[2017-08-20] MEDS: THIAMINE HCL 100 MG TABLET (FP) PO SCH (21:35)
[2017-08-20] MEDS: MELATONIN 5 MG TABLETS PO PRN (21:35)
[2017-08-21] MEDS: SERTRALINE HCL 50 MG TABLET (FP) PO SCH ×2 (10:19→21:08)
[2017-08-21] MEDS: NICOTINE 14 MG/24 HOURS TOPICAL PATCH TD SCH (10:19)
[2017-08-21] MEDS: PRENATAL VITAMINS W/ FOLIC ACID TABLET (FP) PO SCH (10:19)
[2017-08-21] MEDS: lamoTRIgine 100 MG TABLET (FP) PO SCH ×2 (10:20→21:07)
[2017-08-21] MEDS: predniSONE 20 MG TABLET (UD) PO SCH ×2 (10:21→21:08)
[2017-08-21] MEDS: OXYBUTYNIN CHLORIDE 5 MG TABLET PO SCH (10:21)
[2017-08-21] MEDS: QUEtiapine FUMARATE 100 MG TABLET (FP) PO SCH (10:21)
[2017-08-21] MEDS: THIAMINE HCL 100 MG TABLET (FP) PO SCH (21:07)
[2017-08-21] MEDS: QUEtiapine FUMARATE 200 MG TABLET PO SCH (21:07)
[2017-08-22] MEDS: predniSONE 20 MG TABLET (UD) PO SCH ×2 (09:28→21:41)
[2017-08-22] MEDS: lamoTRIgine 100 MG TABLET (FP) PO SCH ×2 (09:29→21:41)
[2017-08-22] MEDS: PRENATAL VITAMINS W/ FOLIC ACID TABLET (FP) PO SCH (09:29)
[2017-08-22] MEDS: NICOTINE 14 MG/24 HOURS TOPICAL PATCH TD SCH (09:29)
[2017-08-22] MEDS: OXYBUTYNIN CHLORIDE 5 MG TABLET PO SCH (09:29)
[2017-08-22] MEDS: QUEtiapine FUMARATE 200 MG TABLET PO SCH ×2 (09:29→21:41)
[2017-08-22] MEDS: SERTRALINE HCL 50 MG TABLET (FP) PO SCH ×2 (09:29→21:41)
[2017-08-22] MEDS: THIAMINE HCL 100 MG TABLET (FP) PO SCH (21:41)
[2017-08-22] MEDS: MAG HYDROX/AL HYDROX/SIMETH 30 ML UNIT-DOSE CUP PO PRN (21:43)
[2017-08-23] MEDS: PRENATAL VITAMINS W/ FOLIC ACID TABLET (FP) PO SCH (09:09)
[2017-08-23] MEDS: lamoTRIgine 100 MG TABLET (FP) PO SCH ×2 (09:09→21:32)
[2017-08-23] MEDS: QUEtiapine FUMARATE 200 MG TABLET PO SCH ×2 (09:09→21:32)
[2017-08-23] MEDS: SERTRALINE HCL 50 MG TABLET (FP) PO SCH ×2 (09:09→21:32)
[2017-08-23] MEDS: OXYBUTYNIN CHLORIDE 5 MG TABLET PO SCH (09:09)
[2017-08-23] MEDS: predniSONE 20 MG TABLET (UD) PO SCH ×2 (09:10→21:33)
[2017-08-23] MEDS: NICOTINE 14 MG/24 HOURS TOPICAL PATCH TD SCH (09:10)
[2017-08-23] MEDS: THIAMINE HCL 100 MG TABLET (FP) PO SCH (21:32)
[2017-08-24] MEDS: predniSONE 20 MG TABLET (UD) PO SCH ×2 (09:50→21:31)
[2017-08-24] MEDS: lamoTRIgine 100 MG TABLET (FP) PO SCH ×2 (09:50→21:30)
[2017-08-24] MEDS: OXYBUTYNIN CHLORIDE 5 MG TABLET PO SCH (09:50)
[2017-08-24] MEDS: PRENATAL VITAMINS W/ FOLIC ACID TABLET (FP) PO SCH (09:51)
[2017-08-24] MEDS: QUEtiapine FUMARATE 200 MG TABLET PO SCH ×2 (09:51→21:31)
[2017-08-24] MEDS: NICOTINE 14 MG/24 HOURS TOPICAL PATCH TD SCH (09:51)
[2017-08-24] MEDS: SERTRALINE HCL 50 MG TABLET (FP) PO SCH ×2 (09:52→21:31)
[2017-08-24] MEDS: NICOTINE POLACRILEX 2 MG GUM BUC PRN (09:53)
[2017-08-24] MEDS: THIAMINE HCL 100 MG TABLET (FP) PO SCH (21:30)
[2017-08-25] MEDS: predniSONE 20 MG TABLET (UD) PO SCH ×2 (10:36→21:44)
[2017-08-25] MEDS: OXYBUTYNIN CHLORIDE 5 MG TABLET PO SCH (10:36)
[2017-08-25] MEDS: lamoTRIgine 100 MG TABLET (FP) PO SCH ×2 (10:37→21:43)
[2017-08-25] MEDS: SERTRALINE HCL 50 MG TABLET (FP) PO SCH ×2 (10:37→21:43)
[2017-08-25] MEDS: QUEtiapine FUMARATE 200 MG TABLET PO SCH ×2 (10:37→21:43)
[2017-08-25] MEDS: NICOTINE 14 MG/24 HOURS TOPICAL PATCH TD SCH (10:38)
[2017-08-25] MEDS: PRENATAL VITAMINS W/ FOLIC ACID TABLET (FP) PO SCH (10:38)
[2017-08-25] MEDS: NICOTINE POLACRILEX 2 MG GUM BUC PRN (10:40)
[2017-08-25] MEDS: MAG HYDROX/AL HYDROX/SIMETH 30 ML UNIT-DOSE CUP PO PRN (10:40)
[2017-08-25] MEDS: THIAMINE HCL 100 MG TABLET (FP) PO SCH (21:44)
[2017-08-26] MEDS: predniSONE 20 MG TABLET (UD) PO SCH ×2 (09:05→21:40)
[2017-08-26] MEDS: SERTRALINE HCL 50 MG TABLET (FP) PO SCH ×2 (09:06→21:39)
[2017-08-26] MEDS: OXYBUTYNIN CHLORIDE 5 MG TABLET PO SCH (09:06)
[2017-08-26] MEDS: lamoTRIgine 100 MG TABLET (FP) PO SCH ×2 (09:06→21:40)
[2017-08-26] MEDS: QUEtiapine FUMARATE 200 MG TABLET PO SCH ×2 (09:07→21:40)
[2017-08-26] MEDS: PRENATAL VITAMINS W/ FOLIC ACID TABLET (FP) PO SCH (09:07)
[2017-08-26] MEDS: NICOTINE 14 MG/24 HOURS TOPICAL PATCH TD SCH (09:07)
[2017-08-26] MEDS: MELATONIN 5 MG TABLETS PO PRN (21:39)
[2017-08-26] MEDS: THIAMINE HCL 100 MG TABLET (FP) PO SCH (21:39)
[2017-08-26] MEDS: MAG HYDROX/AL HYDROX/SIMETH 30 ML UNIT-DOSE CUP PO PRN (21:42)
[2017-08-27] MEDS: predniSONE 20 MG TABLET (UD) PO SCH ×2 (09:51→21:40)
[2017-08-27] MEDS: QUEtiapine FUMARATE 200 MG TABLET PO SCH ×2 (09:52→21:39)
[2017-08-27] MEDS: OXYBUTYNIN CHLORIDE 5 MG TABLET PO SCH (09:52)
[2017-08-27] MEDS: PRENATAL VITAMINS W/ FOLIC ACID TABLET (FP) PO SCH (09:52)
[2017-08-27] MEDS: SERTRALINE HCL 50 MG TABLET (FP) PO SCH ×2 (09:52→21:38)
[2017-08-27] MEDS: NICOTINE POLACRILEX 2 MG GUM BUC PRN (09:53)
[2017-08-27] MEDS: lamoTRIgine 100 MG TABLET (FP) PO SCH ×2 (09:53→21:38)
[2017-08-27] MEDS: NICOTINE 14 MG/24 HOURS TOPICAL PATCH TD SCH (09:53)
[2017-08-27] MEDS: THIAMINE HCL 100 MG TABLET (FP) PO SCH (21:38)
[2017-08-27] MEDS: MELATONIN 5 MG TABLETS PO PRN (21:39)
[2017-08-28] MEDS: predniSONE 20 MG TABLET (UD) PO SCH ×2 (10:11→21:31)
[2017-08-28] MEDS: PRENATAL VITAMINS W/ FOLIC ACID TABLET (FP) PO SCH (10:11)
[2017-08-28] MEDS: OXYBUTYNIN CHLORIDE 5 MG TABLET PO SCH ×2 (10:12→21:33)
[2017-08-28] MEDS: lamoTRIgine 100 MG TABLET (FP) PO SCH ×2 (10:12→21:31)
[2017-08-28] MEDS: NICOTINE 14 MG/24 HOURS TOPICAL PATCH TD SCH (10:12)
[2017-08-28] MEDS: QUEtiapine FUMARATE 200 MG TABLET PO SCH ×2 (10:12→21:30)
[2017-08-28] MEDS: SERTRALINE HCL 50 MG TABLET (FP) PO SCH ×2 (10:12→21:30)
[2017-08-28] MEDS: THIAMINE HCL 100 MG TABLET (FP) PO SCH (21:30)
[2017-08-28] MEDS: MELATONIN 5 MG TABLETS PO PRN (21:32)
[2017-08-29] MEDS: lamoTRIgine 100 MG TABLET (FP) PO SCH ×2 (09:13→21:31)
[2017-08-29] MEDS: NICOTINE 14 MG/24 HOURS TOPICAL PATCH TD SCH (09:13)
[2017-08-29] MEDS: predniSONE 20 MG TABLET (UD) PO SCH ×2 (09:13→21:33)
[2017-08-29] MEDS: PRENATAL VITAMINS W/ FOLIC ACID TABLET (FP) PO SCH (09:14)
[2017-08-29] MEDS: QUEtiapine FUMARATE 200 MG TABLET PO SCH ×2 (09:14→21:31)
[2017-08-29] MEDS: NICOTINE POLACRILEX 2 MG GUM BUC PRN (09:14)
[2017-08-29] MEDS: SERTRALINE HCL 50 MG TABLET (FP) PO SCH ×2 (09:14→21:31)
--- NOTE | 2017-08-29 14:40 | PN ---
Psychiatric Progress Note Vital Signs: Vital Signs Period Temp Pulse Resp BP Sys/Lan Pulse Ox Last 24 Hr 97.8 F 74 18-18 122/76 Date of Session: 08/29/17 Chief Complaint:: Discharge visit HPI: Alcohol,Cannabis,Opioid,Cocaine and Anxiolytic dependence comorbid with Bipolar disorder. ROS: Significant for SLE,BA. Current Medications: Active Medications Generic Name Dose Route Start Last Admin Trade Name Freq PRN Reason Stop Dose Admin Acetaminophen 650 mg 08/16/17 15:35 Tylenol - PO Q4H PRN FEVER Al Hydroxide/Mg Hydroxide 30 ml 08/16/17 15:35 08/26/17 21:42 Mylanta Oral Suspension - PO 30 ml Q6H PRN Administration DYSPEPSIA Albuterol Sulfate 2 puff 08/16/17 15:37 Ventolin Hfa Inhaler - IH Q4H PRN ASTHMA Baclofen 10 mg 08/16/17 15:56 Lioresal - PO TID PRN BACK PAIN Eucalyptus/Menthol/Phenol/Sorbitol 1 each 08/16/17 15:35 Cepastat Lozenge - MM Q4H PRN SORE THROAT Guaifenesin 10 ml 08/16/17 15:35 Robitussin Dm - PO Q6H PRN COUGH Ibuprofen 400 mg 08/16/17 15:35 Motrin - PO Q6H PRN Pain level 4-6 Lamotrigine 100 mg 08/16/17 17:00 08/29/17 09:13 Lamictal - PO 100 mg BID NASH Administration Loperamide HCl 4 mg 08/16/17 15:35 Imodium - PO Q6H PRN DIARRHEA Magnesium Citrate 300 ml 08/16/17 15:35 08/21/17 21:09 Citroma - PO 300 ml Q48H PRN Administration CONSTIPATION Magnesium Hydroxide 30 ml 08/16/17 15:35 Milk Of Magnesia - PO DAILY PRN CONSTIPATION Melatonin 5 mg 08/16/17 22:00 08/28/17 21:32 Melatonin PO 5 mg HS PRN Administration INSOMNIA Nicotine 14 mg 08/16/17 17:00 08/29/17 09:13 Nicoderm Patch - TD Not Given DAILY NASH Nicotine Polacrilex 2 mg 08/16/17 15:37 08/29/17 09:14 Nicorette Gum - BUC 2 mg Q2H PRN Administration NICOTINE REPLACEMENT RX Oxybutynin Chloride 5 mg 08/28/17 22:00 08/28/17 21:33 Ditropan - PO 5 mg HS NASH Administration Prednisone 10 mg 08/16/17 22:00 08/29/17 09:13 Deltasone - PO 10 mg BID NASH Administration Multivit/Folic Acid/Iron 1 tab 08/17/17 10:00 08/29/17 09:14 Vitamins (Sjr) - PO 1 tab DAILY NASH Administration Pseudoephedrine/Triprolidine 1 combo 08/16/17 15:35 Actifed - PO TID PRN NASAL CONGESTION Quetiapine Fumarate 200 mg 08/21/17 22:00 08/29/17 09:14 Seroquel - PO 200 mg BID NASH Administration Sertraline HCl 100 mg 08/17/17 12:00 08/29/17 09:14 Zoloft - PO 100 mg BID NASH Administration Thiamine HCl 100 mg 08/16/17 22:00 08/28/17 21:30 Vitamin B1 - PO 100 mg HS NASH Administration Current Side Effect: No Lab tests ordered: No Lab tests reviewed: Yes Provider note:: Patient will complete this program tomorrow 08/30/17.She has met her treatment goals and will continue to address her issues on outpatient basis.Patient reports finding that current medications :Zoloft 100 mg po bid, Sewroquel 200 mg po bid,Lamictal 100 mg po bid help to cope with depressed mood, anxiety,insomnia,mood instability.Scripts for 30 days provided. Supportive therapy provided focusing on relapse prevention. Patient is stable for discharge tomorrow 08/30/17. Total face to face time:: 30 Mental Status Exam - Mental Status Exam Alert and Oriented to: Time, Place, Person Cognitive Function: Grossly Intact Patient Appearance: Well Groomed Mood: Hopeful, Euthymic Affect: Appropriate, Mood Congruent, Euthymic Patient Behavior: Appropriate, Cooperative Voice Loudness: Normal Thought Process: Goal Oriented Thought Disorder: Not Present Hallucinations: Denies Suicidal Ideation: Denies Homicidal Ideation: Denies Insight/Judgement: Fair Sleep: Fair Appetite: Fair Muscle strength/Tone: Normal Gait/Station: Normal Psychiatric Treatment Plan - Problem List (1) Nicotine dependence Qualifiers: Nicotine product type: cigarettes Substance use status: in withdrawal Qualified Code(s): F17.213 - Nicotine dependence, cigarettes, with withdrawal (2) SLE (systemic lupus erythematosus) Qualifiers: Systemic lupus erythematosus type: other Systemic lupus erythematosus organ involvement: unspecified Qualified Code(s): M32.8 - Other forms of systemic lupus erythematosus (8) Asthma Qualifiers: Asthma severity: mild Asthma complication type: uncomplicated
--- NOTE | 2017-08-29 15:44 | PN ---
S Progress Note Note: Patient schedule for d/c for tomorrow. Home meds sent to pharmacy. Patient to follow up with PMD 1 - 2 upon d/c.
[2017-08-29] MEDS: THIAMINE HCL 100 MG TABLET (FP) PO SCH (21:31)
[2017-08-29] MEDS: OXYBUTYNIN CHLORIDE 5 MG TABLET PO SCH (21:32)
[2017-08-30 06:49] VITALS: BP 128/74; PULSE 99; TEMP 98.5
== END 2017-08-30 07:00 | disposition home or self-care (01) | DRG 772 ==
LOC: YASAS 10:43 → Y3E 16:26
PROVIDERS: ADMIT Psychiatry & Neurology Psychiatry; ATTEND Psychiatry & Neurology Psychiatry
PROC: HZ42ZZZ Group Counseling for Substance Abuse Treatment, Cognitive-Behavioral (ICD-10-PCS; principal; 2017-08-16)
DX: F11.20 Opioid dependence, uncomplicated (principal); F10.20 Alcohol dependence, uncomplicated; F14.20 Cocaine dependence, uncomplicated; F12.20 Cannabis dependence, uncomplicated; F17.213 Nicotine dependence, cigarettes, with withdrawal; F31.9 Bipolar disorder, unspecified; M32.8 Other forms of systemic lupus erythematosus; J45.20 Mild intermittent asthma, uncomplicated; R63.4 Abnormal weight loss; Z68.23 Body mass index [BMI] 23.0-23.9, adult
CPT/HCPCS: 36415; 80053; 81003; 85027; 86593; 87389; 93005; 93010

== ENCOUNTER 2019-02-06 12:28 | Inpatient (IN) | payer OTHER ==
[2019-02-06 13:57] VITALS: BMI 23.0
--- NOTE | 2019-02-06 14:52 | HP ---
CIWA Score Nausea/Vomitin-Mild Nausea/No Vomiting Muscle Tremors: None Anxiety: 0-No Anxiety, at Ease Agitation: 1-Slight > Activity Paroxysmal Sweats: No Perspiration Orientation: 0-Oriented Tacttile Disturbances: 0-None Auditory Disturbances: 0-None Visual Disturbances: 0-None Headache: 0-None Present CIWA-Ar Total Score: 2 - Admission Criteria OASAS Guidelines: Admission for Medically Managed Detox: Requires at least one of the followin. CIWA greater than 12 2. Seizures within the past 24 hours 3. Delirium tremens within the past 24 hours 4. Hallucinations within the past 24 hours 5. Acute intervention needed for co occurring medical disorder 6. Acute intervention needed for co occurring psychiatric disorder 7. Severe withdrawal that cannot be handled at a lower level of care (continued vomiting, continued diarrhea, abnormal vital signs) requiring intravenous medication and/or fluids 8. Admitting History and Physical - Past Medical History ...LMP: 08/10/17 - Smoking History Smoking history: Current every day smoker Have you smoked in the past 12 months: Yes Aproximately how many cigarettes per day: 10 - Alcohol/Substance Use Hx Alcohol Use: Yes (drinking since 14 yo,i pint of vodka daily) Admission [facility] Allergies/Adverse Reactions: Allergies Allergy/AdvReac Type Severity Reaction Status Date / Time nut - unspecified Allergy Severe Hives Verified 08/16/17 16:54 No Known Drug Allergies Allergy Verified 08/16/17 15:38 ALL NUTS Allergy Severe Hives Uncoded 08/16/17 15:38 History of Present Illness: 48 y/o F with history of alcohol, cocaine and marijuana use presenting to [facility] for rehab. PT has been using alcohol and marijuana for 32 yrs and has been using cocaine for about 18 yrs. On weekly basis, she drinks about 1 pint of vodka daily, smokes about 10 bags of cocaine daily and smokes about 4 marijuana joints every other day. No history of blackouts, alcohol worsens her seizures. last seizure was 2 months ago as she was drinking heavy( 1/2 gallon every other day). had prior detox and rehab here at [facility]. Half pack of cigarettes a day for 32 yrs. Last drink was this morning and consisted of about half a pint of vodka. Last cocaine use was also today and consisted of 4 bags. no Injection PMH: Asthma, lupus, seizure disorder, and arthritis Psych: bipolar, anxiety, PTSD PSH: none Social Hx: lives with sister and retired and on pension PE: VS 100 F, 111/68 mmHg, 98 bpm, 20 Utox : thc, cocaine, oxy CIWA : 2 IASBEL 0.000 General: NAD HEENT: PERRLA, moist membranes LUNG: VBS b/L HEART: RRR no MRG Abdomen : +BS, NTND extremities: 2+ pulses, no edema neuro: grossly intact Plan : alcohol detox with valium protocol then rehab Psych consult for psych hx smoking cessation counseled. pt declined patch due to adverse reaction of rash - Ebola screening Have you traveled outside of the country in the last 21 days: No Have you had contact with anyone from an Ebola affected area: No Do you have a fever: No Patient History - Patient Medical History Hx Anemia: No Hx Asthma: Yes Hx Chronic Obstructive Pulmonary Disease (COPD): No Hx Cancer: No Hx Cardiac Disorders: No Hx Congestive Heart Failure: No Hx Hypertension: No Hx Hypercholesterolemia: No Hx Pacemaker: No HX Cerebrovascular Accident: No Hx Seizures: No Hx Dementia: No Hx Diabetes: No Hx Gastrointestinal Disorders: No Hx Liver Disease: No Hx Genitourinary Disorders: No Hx Sexually Transmitted Disorders: No Hx Renal Disease (ESRD): No Hx Thyroid Disease: No Hx Human Immunodeficiency Virus (HIV): No Hx Hepatitis C: No Hx Depression: No Hx Suicide Attempt: No Hx Bipolar Disorder: Yes Hx Schizophrenia: No - Patient Surgical History Past Surgical History: No Hx Neurologic Surgery: No Hx Cataract Extraction: No Hx Cardiac Surgery: No Hx Lung Surgery: No Hx Breast Surgery: No Hx Breast Biopsy: No Hx Abdominal Surgery: No Hx Appendectomy: No Hx Cholecystectomy: No Hx Genitourinary Surgery: No Hx Section: No Hx Orthopedic Surgery: No Anesthesia Reaction: No - PPD History Date: 02/13/17 Results: 0mm - Reproductive History Last Menstrual Period: 08/10/17 - Smoking Cessation Smoking history: Current every day smoker Have you smoked in the past 12 months: Yes Aproximately how many cigarettes per day: 10 Hx Chewing Tobacco Use: No Initiated information on smoking cessation: Yes 'Breaking Loose' booklet given: 02/06/19 - Substances abused Marijuana/Hashish Substance route: Smoking Frequency: 3-6 times per week Amount used: 20 Age of first use: 16 Date of last use: 02/06/19 Alcohol Substance route: Oral Frequency: Daily Amount used: 10 dollars/ 1 pint of liqour Age of first use: 16 Date of last use: 02/06/19 Cocaine Other (specify): crack Substance route: Smoking Frequency: Daily Amount used: 100 dollars Age of first use: 30 Date of last use: 02/06/19 Admission Physical Exam S - Vital Signs Vital Signs: Vital Signs - 24 hr 02/06/19 02/06/19 13:41 14:28 Temperature 100.0 F H 100.0 F H Pulse Rate 98 H 98 H Respiratory 20 20 Rate Blood Pressure 111/68 111/68 Cleared for Admission [facility] - Detox or Rehab [facility] Level of Care: Medically Supervised Breathalyzer - Breathalyzer Breathalyzer: 0 Urine Drug Screen - Test Device Lot number: [id number] Expiration date: 10/10/20 - Control Is test valid?: Yes - Results Drug screen NEGATIVE: No Urine drug screen results: THC-Marijuana, YADIRA-Cocaine, OXY-Oxycodone Inpatient Rehab Admission - Rehab Decision to Admit Inpatient rehab admission?: Yes - Initial Determination Are CD services needed?: No Free of communicable disease: Yes Not in need of hospitalization: No - Rehab Admission Criteria Previous failed treatment: Yes Poor recovery environment: Yes Comorbidities: Yes Lacks judgement: Yes Patient is meeting Inpatient Rehab admission criteria:: Yes
[2019-02-06] MEDS ORDERED: MENTHOL/PHENOL 1 EACH UD MM PRN (15:12)
[2019-02-06] MEDS ORDERED: diazePAM 5 MG TABLET PO PRN (15:12)
[2019-02-06] MEDS ORDERED: MELATONIN 5 MG TABLETS PO PRN (15:12)
[2019-02-06] MEDS ORDERED: MAG HYDROX/AL HYDROX/SIMETH 30 ML UNIT-DOSE CUP PO PRN (15:12)
[2019-02-06] MEDS ORDERED: METHOCARBAMOL 500 MG TABLET PO PRN (15:12)
[2019-02-06] MEDS ORDERED: ACETAMINOPHEN 325 MG TABLET (FP) PO PRN ×2 (15:12)
[2019-02-06] MEDS ORDERED: MAGNESIUM CITRATE 300 ML BOTTLE PO PRN (15:12)
[2019-02-06] MEDS ORDERED: BISMUTH SUBSALICYLATE 524 MG/30 ML UD PO PRN (15:12)
[2019-02-06] MEDS ORDERED: IBUPROFEN 400 MG TABLET (FP) PO PRN (15:12)
[2019-02-06] MEDS ORDERED: MAGNESIUM HYDROX 2400MG/30ML ORAL SUSPENSION 30 ML CUP PO PRN (15:12)
[2019-02-06] MEDS ORDERED: hydrOXYzine PAMOATE 25 MG CAPSULE (FP) PO PRN (15:12)
[2019-02-06] MEDS ORDERED: ALBUTEROL SO4 HFA INHALER IH PRN (15:34)
--- NOTE | 2019-02-06 16:21 | PN ---
Teaching Attending Note Name of Resident: Tiffany Dos Santos ATTENDING PHYSICIAN STATEMENT I saw and evaluated the patient. I reviewed the resident's note and discussed the case with the resident. I agree with the resident's findings and plan as documented. SUBJECTIVE:pt here requesting detox from etoh use , reports 1 pint daily , seizure 2 mo ago taken to hospital, previously on lamotrigine d/c 'd since 04/14 seroquel use , latest use this morning . Use of etoh x 32 yrs. cocaine : via smoking 10 bags daily cannabis : every other day PMH: Asthma, lupus, seizure disorder, arthritis caleb knees/wrists/ hips , P caleb TKR Psych: bipolar, anxiety, PTSD denies SI / HI LMP today , 2 children 31 and 16 , minor child w/ pt's aunt per own report . PSHx: none OBJECTIVE: wnwd , mild distress . Vital Signs - 24 hr 02/06/19 02/06/19 13:41 14:28 Temperature 100.0 F H 100.0 F H Pulse Rate 98 H 98 H Respiratory 20 20 Rate Blood Pressure 111/68 111/68 ASSESSMENT AND PLAN: AUD - Librium detox
[2019-02-06] MEDS: diazePAM 5 MG TABLET PO SCH ×2 (16:23→22:20)
[2019-02-06] MEDS ORDERED: CIT PO SCH (22:00)
[2019-02-06] MEDS ORDERED: MAG CIT PO SCH (22:00)
[2019-02-06] MEDS ORDERED: CALCIUM CARB PO SCH (22:00)
[2019-02-06] MEDS ORDERED: [UNRECOGNIZED DRUG - OTHER] PO SCH (22:00)
[2019-02-06] MEDS: lamoTRIgine 100 MG TABLET PO SCH (22:20)
[2019-02-06] MEDS: predniSONE 10 MG TABLET (UD) PO SCH (22:20)
[2019-02-06] MEDS: MONTELUKAST NA 10 MG TABLET PO SCH (22:20)
[2019-02-06] MEDS: THIAMINE HCL 100 MG TABLET (FP) PO SCH (22:20)
[2019-02-07] MEDS: diazePAM 5 MG TABLET PO SCH ×3 (06:33→22:17)
[2019-02-07] MEDS: OXYBUTYNIN CHLORIDE 5 MG TABLET PO SCH (10:30)
[2019-02-07] MEDS: lamoTRIgine 100 MG TABLET PO SCH (10:30)
[2019-02-07] MEDS: PRENATAL VITAMINS W/ FOLIC ACID TABLET (FP) PO SCH (10:30)
[2019-02-07] MEDS: MONTELUKAST NA 10 MG TABLET PO SCH ×2 (10:30→22:17)
[2019-02-07] MEDS: predniSONE 10 MG TABLET (UD) PO SCH ×2 (10:30→22:16)
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
--- NOTE | 2019-02-07 11:47 | PN ---
S CIWA - CIWA Score Nausea/Vomitin-No Nausea/No Vomiting Muscle Tremors: 3 Anxiety: 2 Agitation: 2 Paroxysmal Sweats: 1-Minimal Palms Moist Orientation: 0-Oriented Tacttile Disturbances: 0-None Auditory Disturbances: 0-None Visual Disturbances: 0-None Headache: 0-None Present CIWA-Ar Total Score: 8 BHS Progress Note (SOAP) Subjective: anxiety sweats body aches nausea Objective: 02/07/19 11:45 Vital Signs Temperature 98.1 F 02/07/19 10:53 Pulse Rate 74 02/07/19 10:53 Respiratory Rate 18 02/07/19 10:53 Blood Pressure 119/74 02/07/19 10:53 O2 Sat by Pulse Oximetry (%) labs pending aaox3 ambulating no acute distress Assessment: 02/07/19 11:45 withdrawals Plan: continue detox increase fluids zofran sl prn motrin/tylenol prn
[2019-02-07] MEDS ORDERED: ONDANSETRON *ODT* 4 MG TABLET SL PRN (11:48)
[2019-02-07] MEDS ORDERED: FLU VACCINE QUAD 60 MCG/0.5 ML (MDV 19-20) IM ONE (12:00)
[2019-02-07] MEDS: QUEtiapine FUMARATE 200 MG TABLET PO SCH ×2 (12:27→22:17)
[2019-02-07 13:00] LABS: HEMATOCRIT 41.4 % (32.4-45.2); HEMOGLOBIN 13.6 GM/dL (10.7-15.3); RDW 14.2 % (11.6-15.6); WHITE BLOOD COUNT 11.3 K/mm3 (4.0-10.0)
[2019-02-07 13:59] LABS: ALBUMIN 3.4 g/dl (3.4-5.0); BILIRUBIN,TOTAL 0.2 mg/dL (0.2-1); BLOOD UREA NITROGEN 11.9 mg/dL (7-18); CALCIUM 9.2 mg/dL (8.5-10.1); CREATININE 0.7 mg/dL (0.55-1.3); POTASSIUM 4.4 mmol/L (3.5-5.1)
[2019-02-07] MEDS: SERTRALINE HCL 50 MG TABLET (FP) PO SCH (17:04)
[2019-02-07] MEDS: THIAMINE HCL 100 MG TABLET (FP) PO SCH (22:17)
[2019-02-08] MEDS: diazePAM 5 MG TABLET PO SCH ×2 (05:24→17:25)
[2019-02-08] MEDS: OXYBUTYNIN CHLORIDE 5 MG TABLET PO SCH (10:22)
[2019-02-08] MEDS: PRENATAL VITAMINS W/ FOLIC ACID TABLET (FP) PO SCH (10:22)
[2019-02-08] MEDS: QUEtiapine FUMARATE 200 MG TABLET PO SCH ×2 (10:22→22:06)
[2019-02-08] MEDS: SERTRALINE HCL 50 MG TABLET (FP) PO SCH ×2 (10:22→17:25)
[2019-02-08] MEDS: MONTELUKAST NA 10 MG TABLET PO SCH ×2 (10:22→22:06)
[2019-02-08] MEDS: predniSONE 10 MG TABLET (UD) PO SCH ×2 (10:22→22:06)
--- NOTE | 2019-02-08 11:57 | PN ---
BHS CIWA - CIWA Score Nausea/Vomitin-No Nausea/No Vomiting Muscle Tremors: 3 Anxiety: 1-Mildly Anxious Agitation: 0-Normal Activity Paroxysmal Sweats: 1-Minimal Palms Moist Orientation: 0-Oriented Tacttile Disturbances: 0-None Auditory Disturbances: 0-None Visual Disturbances: 0-None Headache: 0-None Present CIWA-Ar Total Score: 5 BHS Progress Note (SOAP) Subjective: interrupted sleep little sweats/shakes Objective: 02/08/19 11:56 Vital Signs Temperature 98.1 F 02/08/19 10:04 Pulse Rate 79 02/08/19 10:04 Respiratory Rate 18 02/08/19 10:04 Blood Pressure 121/76 02/08/19 10:04 O2 Sat by Pulse Oximetry (%) Laboratory Tests 02/07/19 02/07/19 02/07/19 07:00 07:00 07:00 WBC 11.3 H RBC 4.40 Hgb 13.6 Hct 41.4 MCV 94.0 MCH 31.0 MCHC 33.0 RDW 14.2 Plt Count Sodium 138 Potassium 4.4 Chloride 110 H Carbon Dioxide 24 Anion Gap 5 L BUN 11.9 Creatinine 0.7 Est GFR (CKD-EPI)AfAm 118.74 Est GFR (CKD-EPI)NonAf 102.45 Random Glucose 109 H Calcium 9.2 Total Bilirubin 0.2 AST 13 L ALT 11 L Alkaline Phosphatase 84 Total Protein 7.0 Albumin 3.4 RPR Titer Nonreactive HIV 1&2 Antibody Screen HIV P24 Antigen 02/07/19 07:00 WBC RBC Hgb Hct MCV MCH MCHC RDW Plt Count Sodium Potassium Chloride Carbon Dioxide Anion Gap BUN Creatinine Est GFR (CKD-EPI)AfAm Est GFR (CKD-EPI)NonAf Random Glucose Calcium Total Bilirubin AST ALT Alkaline Phosphatase Total Protein Albumin RPR Titer HIV 1&2 Antibody Screen Cancelled HIV P24 Antigen Cancelled labs noted aaox3 ambulating no acute distress Assessment: 02/08/19 11:57 mild withdrawal sx Plan: continue detox increase fluids
[2019-02-08] MEDS: THIAMINE HCL 100 MG TABLET (FP) PO SCH (22:06)
[2019-02-09] MEDS ORDERED: diazePAM 5 MG TABLET PO ONE (06:00)
[2019-02-09] MEDS: PRENATAL VITAMINS W/ FOLIC ACID TABLET (FP) PO SCH (10:24)
[2019-02-09] MEDS: predniSONE 10 MG TABLET (UD) PO SCH (10:24)
[2019-02-09] MEDS: OXYBUTYNIN CHLORIDE 5 MG TABLET PO SCH (10:24)
[2019-02-09] MEDS: QUEtiapine FUMARATE 200 MG TABLET PO SCH (10:24)
[2019-02-09] MEDS: SERTRALINE HCL 50 MG TABLET (FP) PO SCH (10:24)
[2019-02-09] MEDS: MONTELUKAST NA 10 MG TABLET PO SCH (10:24)
[2019-02-09 13:47] VITALS: BP 134/84; PULSE 84; TEMP 97.7
--- NOTE | 2019-02-10 12:33 | DS ---
[facility] Detox Discharge Summary Admission Date: 02/06/19 Discharge Date: 02/09/19 - History Present History: Alcohol Dependence, Cannabis Dependence, Cocaine Dependence, Opioid Dependence - Physical Exam Results Vital Signs: Vital Signs Temperature 97.7 F 02/09/19 13:46 Pulse Rate 84 02/09/19 13:46 Respiratory Rate 18 02/09/19 13:46 Blood Pressure 134/84 02/09/19 13:46 O2 Sat by Pulse Oximetry (%) Pertinent Admission Physical Exam Findings: pt arrived in withdrawals Vital Signs Temperature 97.7 F 02/09/19 13:46 Pulse Rate 84 02/09/19 13:46 Respiratory Rate 18 02/09/19 13:46 Blood Pressure 134/84 02/09/19 13:46 O2 Sat by Pulse Oximetry (%) Laboratory Tests 02/07/19 02/07/19 02/07/19 07:00 07:00 07:00 WBC 11.3 H RBC 4.40 Hgb 13.6 Hct 41.4 MCV 94.0 MCH 31.0 MCHC 33.0 RDW 14.2 Plt Count Sodium 138 Potassium 4.4 Chloride 110 H Carbon Dioxide 24 Anion Gap 5 L BUN 11.9 Creatinine 0.7 Est GFR (CKD-EPI)AfAm 118.74 Est GFR (CKD-EPI)NonAf 102.45 Random Glucose 109 H Calcium 9.2 Total Bilirubin 0.2 AST 13 L ALT 11 L Alkaline Phosphatase 84 Total Protein 7.0 Albumin 3.4 RPR Titer Nonreactive HIV 1&2 Ag/Ab, 4th Gen HIV 1&2 Antibody Screen HIV P24 Antigen 02/07/19 02/07/19 07:00 13:20 WBC RBC Hgb Hct MCV MCH MCHC RDW Plt Count Sodium Potassium Chloride Carbon Dioxide Anion Gap BUN Creatinine Est GFR (CKD-EPI)AfAm Est GFR (CKD-EPI)NonAf Random Glucose Calcium Total Bilirubin AST ALT Alkaline Phosphatase Total Protein Albumin RPR Titer HIV 1&2 Ag/Ab, 4th Gen Non reactive HIV 1&2 Antibody Screen Cancelled HIV P24 Antigen Cancelled aaox3 ambulating - Treatment Hospital Course: Detox Protocol Followed, Detoxed Safely, Responded well, Discharged Condition Good, Rehab Referral Accepted Patient has Accepted a Rehab Referral to: referred to [facility] inpatient rehab yesterday - Medication Discharge Medications: Ambulatory Orders Oxybutynin Chloride 10 mg PO DAILY 02/15/17 Lamotrigine [LaMICtal -] 100 mg PO BID #60 tablet 08/29/17 Quetiapine Fumarate [Seroquel -] 200 mg PO BID #60 tablet 08/29/17 Sertraline HCl [Zoloft -] 100 mg PO BID #120 tablet 08/29/17 Albuterol Sulfate Inhaler - [Ventolin HFA Inhaler -] 2 inh PO QID PRN 02/06/19 Calcium Carb, Cit/Mag Cit, Gly [Localnesium Tablet] 1 each PO BID 02/06/19 Montelukast Na [Singulair -] 10 mg PO BID 02/06/19 predniSONE [Deltasone -] 10 mg PO BID #30 tablet 02/06/19 - Diagnosis (1) Alcohol dependence with uncomplicated withdrawal Status: Acute (2) Cannabis dependence Status: Acute (3) Cocaine dependence, uncomplicated Status: Acute (4) Sedative, hypnotic or anxiolytic dependence Status: Acute (5) Sedative, hypnotic or anxiolytic dependence with withdrawal, uncomplicated Status: Acute (6) Substance-induced sleep disorder Status: Acute (7) Weight loss Status: Acute (8) Alcohol dependence Status: Chronic (9) Asthma Status: Chronic Qualifiers: Asthma severity: mild Asthma complication type: uncomplicated (10) Bipolar II disorder Status: Chronic (11) Bipolar affective disorder Status: Chronic (12) Cannabis dependence Status: Chronic (13) Cocaine dependence Status: Chronic Qualifiers: Substance use status: uncomplicated Qualified Code(s): F14.20 - Cocaine dependence, uncomplicated (14) Cocaine dependence Status: Chronic (15) Fibromyalgia Status: Chronic (16) Nicotine dependence Status: Chronic Qualifiers: Nicotine product type: cigarettes Substance use status: in withdrawal Qualified Code(s): F17.213 - Nicotine dependence, cigarettes, with withdrawal (17) Opioid dependence Status: Chronic (18) Rheumatoid arthritis Status: Chronic (19) SLE (systemic lupus erythematosus) Status: Chronic Qualifiers: Systemic lupus erythematosus type: other Systemic lupus erythematosus organ involvement: unspecified Qualified Code(s): M32.8 - Other forms of systemic lupus erythematosus - AMA Did Patient Leave Against Medical Advice: No
== END 2019-02-09 14:30 | disposition other institution (70) | DRG 774 ==
LOC: YASAS 12:28 → Y6N 15:40
PROVIDERS: ADMIT Allergy & Immunology; ATTEND Allergy & Immunology
PROC: HZ2ZZZZ Detoxification Services for Substance Abuse Treatment (ICD-10-PCS; principal; 2019-02-06)
DX: F10.230 Alcohol dependence with withdrawal, uncomplicated (principal); F14.20 Cocaine dependence, uncomplicated; F12.20 Cannabis dependence, uncomplicated; F17.210 Nicotine dependence, cigarettes, uncomplicated; F31.81 Bipolar II disorder; F43.10 Post-traumatic stress disorder, unspecified; F41.9 Anxiety disorder, unspecified; M32.9 Systemic lupus erythematosus, unspecified; M06.9 Rheumatoid arthritis, unspecified; M79.7 Fibromyalgia; M54.30 Sciatica, unspecified side; J45.20 Mild intermittent asthma, uncomplicated; Z96.653 Presence of artificial knee joint, bilateral; Z87.19 Personal history of other diseases of the digestive system; Z91.018 Allergy to other foods
CPT/HCPCS: 36415; 80053; 81025; 85027; 86593; 87389; G0008; Q2036

== ENCOUNTER 2019-02-09 12:43 | Inpatient (IN) | payer OTHER ==
[2019-02-09] MEDS ORDERED: MAGNESIUM CITRATE 300 ML BOTTLE PO PRN (19:10)
[2019-02-09] MEDS ORDERED: MENTHOL/PHENOL 1 EACH UD MM PRN (19:10)
[2019-02-09] MEDS ORDERED: IBUPROFEN 400 MG TABLET (FP) PO PRN (19:10)
[2019-02-09] MEDS ORDERED: guaiFENesin 200 MG/10 ML 10 ML UNIT-DOSE CUPS PO PRN (19:10)
[2019-02-09] MEDS ORDERED: P-EPHED 60MG/TRIPROLIDI 2.5MG TABLET PO PRN (19:10)
[2019-02-09] MEDS ORDERED: ACETAMINOPHEN 325 MG TABLET (FP) PO PRN (19:10)
[2019-02-09] MEDS ORDERED: MAGNESIUM HYDROX 2400MG/30ML ORAL SUSPENSION 30 ML CUP PO PRN (19:10)
[2019-02-09] MEDS: LOPERAMIDE HCL 2 MG CAPSULE PO PRN (21:56)
[2019-02-09] MEDS: THIAMINE HCL 100 MG TABLET (FP) PO SCH (21:56)
[2019-02-09] MEDS: lamoTRIgine 100 MG TABLET (FP) PO SCH (21:59)
[2019-02-09] MEDS ORDERED: MELATONIN 5 MG TABLETS PO PRN (22:00)
[2019-02-10] MEDS ORDERED: PT OWN MED DRAWER 7, Y5N ONE (08:46)
[2019-02-10] MEDS: lamoTRIgine 100 MG TABLET (FP) PO SCH (10:18)
[2019-02-10] MEDS: OXYBUTYNIN CHLORIDE 5 MG TABLET PO SCH (10:18)
[2019-02-10] MEDS: PRENATAL VITAMINS W/ FOLIC ACID TABLET (FP) PO SCH (10:18)
[2019-02-10] MEDS ORDERED: ALBUTEROL SO4 8 GM HFA INHALER IH PRN (12:09)
--- NOTE | 2019-02-10 12:13 | PN ---
S Progress Note Note: Psychiatric nurse practitioner note: Patient transferred to from [facility] yesterday. Will continue medications ordered by Dr. De La Vega. Zoloft 100mg BID + Seroquel 200mg BID. Lamictal 100mg BID ordered by SHASHANK Gallegos. Patient is not currently on lamictal. Medication discontinued.
[2019-02-10] MEDS ORDERED: MONTELUKAST NA 10 MG TABLET PO SCH (12:15)
--- NOTE | 2019-02-10 12:35 | HP ---
[facility] Rehab Assess/Revision - Admission History Admitted to Rehab from: [facility] - Vital signs Vital Signs: Vital Signs Period Temp Pulse Resp BP Sys/Lan Pulse Ox Last 24 Hr 98.1 F-98.3 F 73-107 16-18 125-139/81-88 - Findings Detox History & Physical reviewed: Yes Concur with findings: Yes Inpatient Rehab Admission - Rehab Decision to Admit Inpatient rehab admission?: Yes - Initial Determination Are CD services needed?: Yes Free of communicable disease: Yes Not in need of hospitalization: Yes - Rehab Admission Criteria Previous failed treatment: Yes Poor recovery environment: Yes Comorbidities: Yes Lacks judgement: Yes Patient is meeting Inpatient Rehab admission criteria:: Yes
[2019-02-10] MEDS: SERTRALINE HCL 50 MG TABLET (FP) PO SCH (17:31)
[2019-02-10] MEDS: MONTELUKAST NA 10 MG TABLET PO SCH (21:15)
[2019-02-10] MEDS: THIAMINE HCL 100 MG TABLET (FP) PO SCH (21:15)
[2019-02-10] MEDS: QUEtiapine FUMARATE 200 MG TABLET PO SCH (21:15)
[2019-02-11] MEDS: MAG HYDROX/AL HYDROX/SIMETH 30 ML UNIT-DOSE CUP PO PRN (06:27)
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
[2019-02-11] MEDS: QUEtiapine FUMARATE 200 MG TABLET PO SCH ×2 (09:41→21:37)
[2019-02-11] MEDS: OXYBUTYNIN CHLORIDE 5 MG TABLET PO SCH (09:41)
[2019-02-11] MEDS: SERTRALINE HCL 50 MG TABLET (FP) PO SCH ×2 (09:42→17:07)
[2019-02-11] MEDS: PRENATAL VITAMINS W/ FOLIC ACID TABLET (FP) PO SCH (09:42)
[2019-02-11] MEDS: hydrOXYzine PAMOATE 50 MG CAPSULE (FP) PO PRN (11:01)
--- NOTE | 2019-02-11 14:41 | PN ---
[facility] Progress Note Note: Patient has hx of SLE and reports talking Prednisone 10mg bid daily. New Pharmacy called and verified last prescription picked up 12/31/18. Patient states she has current prescription in her property belongings. Patient to retrieve medication and present to clinical staff for verification. Vital Signs Temperature 98.4 F 02/11/19 07:41 Pulse Rate 76 02/11/19 07:41 Respiratory Rate 18 02/11/19 07:41 Blood Pressure 115/71 02/11/19 07:41 O2 Sat by Pulse Oximetry (%)
--- NOTE | 2019-02-11 15:41 | PN ---
[facility] Progress Note Note: Pt is a 48 y/o female with a hx of JORDAN admitted to rehab from [address] [place] [address]. Hx of Seizures(no med), asthma(on med), GERD(takes nexium), overactive bladder( on med),SLE, and bipolar Disorder. Pt reports she has a primary care doctor, Dr. Car at [place], [place]. Pt c/o acid reflux sx today and wants medication. Vital Signs - 24 hr 02/11/19 02/11/19 00:30 07:41 Temperature 98.4 F Pulse Rate 76 Respiratory 18 18 Rate Blood Pressure 115/71 Alert o x 3 nad oob ambulating with steady gait A/P New Rehab Pt Maintain safety continue rehab protonix 40 mg po daily follow up with primary care provider after discharge from rehab.
[2019-02-11] MEDS ORDERED: PANTOPRAZOLE 40 MG TABLET (FP) PO ONE (15:43)
--- NOTE | 2019-02-11 15:46 | PREP.REFER ---
HIV PrEP/PEP - PrEP HIV Risk Assessment When was your last HIV test?: 02/07/19 HIV Test offered: Accepted Are you concerned about any sexual encounters past 6 months?: No Have you had a STI in the last 6 months?: No Have you shared needles or other equipment?: No Are you interested in daily medication to help prevent HIV?: No Recommendation: None at this time
[2019-02-11] MEDS ORDERED: PT OWN MED DRAWER 7, Y5N ONE ×2 (16:05→21:40)
[2019-02-11] MEDS: FAMOTIDINE 10 MG TABLET PO SCH (21:37)
[2019-02-11] MEDS: THIAMINE HCL 100 MG TABLET (FP) PO SCH (21:37)
[2019-02-11] MEDS: MONTELUKAST NA 10 MG TABLET PO SCH (21:37)
[2019-02-11] MEDS: predniSONE 10 MG TABLET (UD) PO SCH (21:58)
[2019-02-12] MEDS ORDERED: PT OWN MED DRAWER 7, Y5N ONE ×3 (08:40→21:37)
[2019-02-12] MEDS: FAMOTIDINE 10 MG TABLET PO SCH ×2 (10:18→21:35)
[2019-02-12] MEDS: OXYBUTYNIN CHLORIDE 5 MG TABLET PO SCH (10:18)
[2019-02-12] MEDS: QUEtiapine FUMARATE 200 MG TABLET PO SCH ×2 (10:19→21:35)
[2019-02-12] MEDS: SERTRALINE HCL 50 MG TABLET (FP) PO SCH ×2 (10:19→17:33)
[2019-02-12] MEDS: PRENATAL VITAMINS W/ FOLIC ACID TABLET (FP) PO SCH (10:19)
[2019-02-12] MEDS: predniSONE 10 MG TABLET (UD) PO SCH ×2 (10:19→21:36)
[2019-02-12] MEDS: THIAMINE HCL 100 MG TABLET (FP) PO SCH (21:33)
[2019-02-12] MEDS: MAG HYDROX/AL HYDROX/SIMETH 30 ML UNIT-DOSE CUP PO PRN (21:35)
[2019-02-12] MEDS: MONTELUKAST NA 10 MG TABLET PO SCH (21:35)
[2019-02-13] MEDS ORDERED: PT OWN MED DRAWER 7, Y5N ONE ×2 (09:15→21:27)
[2019-02-13] MEDS: predniSONE 10 MG TABLET (UD) PO SCH ×2 (10:25→21:27)
[2019-02-13] MEDS: OXYBUTYNIN CHLORIDE 5 MG TABLET PO SCH (10:25)
[2019-02-13] MEDS: SERTRALINE HCL 50 MG TABLET (FP) PO SCH ×2 (10:25→17:40)
[2019-02-13] MEDS: FAMOTIDINE 10 MG TABLET PO SCH ×2 (10:25→21:28)
[2019-02-13] MEDS: PRENATAL VITAMINS W/ FOLIC ACID TABLET (FP) PO SCH (10:25)
[2019-02-13] MEDS: QUEtiapine FUMARATE 200 MG TABLET PO SCH ×2 (10:25→21:26)
[2019-02-13] MEDS: hydrOXYzine PAMOATE 50 MG CAPSULE (FP) PO PRN ×2 (10:26→21:25)
[2019-02-13] MEDS: MAG HYDROX/AL HYDROX/SIMETH 30 ML UNIT-DOSE CUP PO PRN (13:09)
[2019-02-13] MEDS: NICOTINE POLACRILEX 4 MG GUM BUC PRN (13:10)
[2019-02-13] MEDS: THIAMINE HCL 100 MG TABLET (FP) PO SCH (21:25)
[2019-02-13] MEDS: MONTELUKAST NA 10 MG TABLET PO SCH (21:26)
--- NOTE | 2019-02-14 08:50 | PN ---
[facility] Progress Note Note: pt c/o upper frontal gum irritation. Vital Signs - 24 hr 02/14/19 02/14/19 02/14/19 00:30 03:30 07:00 Pulse Rate 69 Respiratory 16 16 16 Rate Blood Pressure 120/78 Oral exam:Extensive teeth involvement with old fillings. No redness or swelling to gum areas. A/P Teeth in state of poor repair Peridex oral rinse as directed
[2019-02-14] MEDS ORDERED: PT OWN MED DRAWER 7, Y5N ONE (08:55)
[2019-02-14] MEDS: OXYBUTYNIN CHLORIDE 5 MG TABLET PO SCH (10:09)
[2019-02-14] MEDS: QUEtiapine FUMARATE 200 MG TABLET PO SCH ×2 (10:09→21:30)
[2019-02-14] MEDS: SERTRALINE HCL 50 MG TABLET (FP) PO SCH ×2 (10:09→18:09)
[2019-02-14] MEDS: PRENATAL VITAMINS W/ FOLIC ACID TABLET (FP) PO SCH (10:10)
[2019-02-14] MEDS: predniSONE 10 MG TABLET (UD) PO SCH ×2 (10:10→21:31)
[2019-02-14] MEDS: NICOTINE POLACRILEX 4 MG GUM BUC PRN ×2 (10:11→18:11)
[2019-02-14] MEDS: FAMOTIDINE 10 MG TABLET PO SCH ×2 (10:11→21:31)
[2019-02-14] MEDS: CHLORHEXIDINE GLUCONATE 118 ML MOUTHWASH MM SCH ×2 (10:34→21:31)
--- NOTE | 2019-02-14 13:47 | PN ---
S Progress Note Note: Pt requesting cane. Did not come here with one. But pt states she uses it when at home. Says she falls b/c of bursitis and knee pain. cane ordered
[2019-02-14] MEDS: MONTELUKAST NA 10 MG TABLET PO SCH (21:30)
[2019-02-14] MEDS: THIAMINE HCL 100 MG TABLET (FP) PO SCH (21:30)
[2019-02-15] MEDS: LOPERAMIDE HCL 2 MG CAPSULE PO PRN ×2 (06:47→19:10)
[2019-02-15] MEDS ORDERED: PT OWN MED DRAWER 7, Y5N ONE ×2 (08:30→21:11)
[2019-02-15] MEDS: predniSONE 10 MG TABLET (UD) PO SCH ×2 (10:25→22:10)
[2019-02-15] MEDS: PRENATAL VITAMINS W/ FOLIC ACID TABLET (FP) PO SCH (10:25)
[2019-02-15] MEDS: SERTRALINE HCL 50 MG TABLET (FP) PO SCH ×2 (10:26→17:09)
[2019-02-15] MEDS: CHLORHEXIDINE GLUCONATE 118 ML MOUTHWASH MM SCH ×2 (10:26→22:10)
[2019-02-15] MEDS: OXYBUTYNIN CHLORIDE 5 MG TABLET PO SCH (10:26)
[2019-02-15] MEDS: QUEtiapine FUMARATE 200 MG TABLET PO SCH ×2 (10:26→22:10)
[2019-02-15] MEDS: FAMOTIDINE 10 MG TABLET PO SCH ×2 (10:28→22:10)
[2019-02-15] MEDS: MONTELUKAST NA 10 MG TABLET PO SCH (22:04)
[2019-02-15] MEDS: THIAMINE HCL 100 MG TABLET (FP) PO SCH (22:10)
[2019-02-16] MEDS: LOPERAMIDE HCL 2 MG CAPSULE PO PRN (07:23)
[2019-02-16] MEDS: PRENATAL VITAMINS W/ FOLIC ACID TABLET (FP) PO SCH (10:20)
[2019-02-16] MEDS: CHLORHEXIDINE GLUCONATE 118 ML MOUTHWASH MM SCH ×2 (10:20→21:16)
[2019-02-16] MEDS: SERTRALINE HCL 50 MG TABLET (FP) PO SCH ×2 (10:20→17:30)
[2019-02-16] MEDS: predniSONE 10 MG TABLET (UD) PO SCH ×2 (10:20→21:17)
[2019-02-16] MEDS: OXYBUTYNIN CHLORIDE 5 MG TABLET PO SCH (10:20)
[2019-02-16] MEDS: QUEtiapine FUMARATE 200 MG TABLET PO SCH ×2 (10:20→21:15)
[2019-02-16] MEDS: FAMOTIDINE 10 MG TABLET PO SCH ×2 (10:20→21:15)
[2019-02-16] MEDS ORDERED: PT OWN MED DRAWER 7, Y5N ONE ×2 (10:32→21:17)
[2019-02-16] MEDS: THIAMINE HCL 100 MG TABLET (FP) PO SCH (21:15)
[2019-02-16] MEDS: MONTELUKAST NA 10 MG TABLET PO SCH (21:15)
[2019-02-17] MEDS: CHLORHEXIDINE GLUCONATE 118 ML MOUTHWASH MM SCH ×2 (10:46→21:06)
[2019-02-17] MEDS: predniSONE 10 MG TABLET (UD) PO SCH ×2 (10:46→21:07)
[2019-02-17] MEDS: PRENATAL VITAMINS W/ FOLIC ACID TABLET (FP) PO SCH (10:46)
[2019-02-17] MEDS: OXYBUTYNIN CHLORIDE 5 MG TABLET PO SCH (10:47)
[2019-02-17] MEDS: FAMOTIDINE 10 MG TABLET PO SCH ×2 (10:47→21:07)
[2019-02-17] MEDS: QUEtiapine FUMARATE 200 MG TABLET PO SCH ×2 (10:47→21:06)
[2019-02-17] MEDS: SERTRALINE HCL 50 MG TABLET (FP) PO SCH ×2 (10:47→17:08)
[2019-02-17] MEDS: NICOTINE POLACRILEX 4 MG GUM BUC PRN (10:48)
[2019-02-17] MEDS ORDERED: PT OWN MED DRAWER 7, Y5N ONE ×2 (18:51→23:42)
[2019-02-17] MEDS: MONTELUKAST NA 10 MG TABLET PO SCH (21:06)
[2019-02-17] MEDS: THIAMINE HCL 100 MG TABLET (FP) PO SCH (21:07)
[2019-02-18] MEDS ORDERED: PT OWN MED DRAWER 7, Y5N ONE ×2 (09:00→21:44)
[2019-02-18] MEDS: FAMOTIDINE 10 MG TABLET PO SCH ×2 (09:33→21:42)
[2019-02-18] MEDS: OXYBUTYNIN CHLORIDE 5 MG TABLET PO SCH (09:34)
[2019-02-18] MEDS: predniSONE 10 MG TABLET (UD) PO SCH ×2 (09:34→21:44)
[2019-02-18] MEDS: CHLORHEXIDINE GLUCONATE 118 ML MOUTHWASH MM SCH ×2 (09:34→21:44)
[2019-02-18] MEDS: PRENATAL VITAMINS W/ FOLIC ACID TABLET (FP) PO SCH (09:36)
[2019-02-18] MEDS: SERTRALINE HCL 50 MG TABLET (FP) PO SCH ×2 (09:36→17:05)
[2019-02-18] MEDS: QUEtiapine FUMARATE 200 MG TABLET PO SCH ×2 (09:36→21:41)
[2019-02-18] MEDS: NAPROXEN 500 MG TABLET (FP) PO PRN ×2 (10:18→21:44)
[2019-02-18] MEDS: NICOTINE POLACRILEX 4 MG GUM BUC PRN (17:06)
[2019-02-18] MEDS: THIAMINE HCL 100 MG TABLET (FP) PO SCH (21:41)
[2019-02-18] MEDS: MONTELUKAST NA 10 MG TABLET PO SCH (21:42)
[2019-02-19] MEDS: SERTRALINE HCL 50 MG TABLET (FP) PO SCH ×2 (10:10→16:52)
[2019-02-19] MEDS: QUEtiapine FUMARATE 200 MG TABLET PO SCH ×2 (10:10→21:35)
[2019-02-19] MEDS: PRENATAL VITAMINS W/ FOLIC ACID TABLET (FP) PO SCH (10:10)
[2019-02-19] MEDS: OXYBUTYNIN CHLORIDE 5 MG TABLET PO SCH (10:10)
[2019-02-19] MEDS: predniSONE 10 MG TABLET (UD) PO SCH ×2 (10:10→21:35)
[2019-02-19] MEDS: CHLORHEXIDINE GLUCONATE 118 ML MOUTHWASH MM SCH ×2 (10:11→21:35)
[2019-02-19] MEDS: FAMOTIDINE 10 MG TABLET PO SCH ×2 (10:11→21:35)
[2019-02-19] MEDS: NAPROXEN 500 MG TABLET (FP) PO PRN ×2 (10:12→16:52)
[2019-02-19] MEDS ORDERED: PT OWN MED DRAWER 7, Y5N ONE ×2 (15:19→20:00)
[2019-02-19] MEDS: MONTELUKAST NA 10 MG TABLET PO SCH (21:35)
[2019-02-19] MEDS: THIAMINE HCL 100 MG TABLET (FP) PO SCH (21:35)
[2019-02-20] MEDS: FAMOTIDINE 10 MG TABLET PO SCH ×2 (09:41→21:50)
[2019-02-20] MEDS: CHLORHEXIDINE GLUCONATE 118 ML MOUTHWASH MM SCH ×2 (09:41→21:50)
[2019-02-20] MEDS: SERTRALINE HCL 50 MG TABLET (FP) PO SCH ×2 (09:42→21:50)
[2019-02-20] MEDS: PRENATAL VITAMINS W/ FOLIC ACID TABLET (FP) PO SCH (09:42)
[2019-02-20] MEDS: OXYBUTYNIN CHLORIDE 5 MG TABLET PO SCH (09:42)
[2019-02-20] MEDS: QUEtiapine FUMARATE 200 MG TABLET PO SCH ×2 (09:42→21:49)
[2019-02-20] MEDS: predniSONE 10 MG TABLET (UD) PO SCH (09:42)
[2019-02-20] MEDS ORDERED: predniSONE 20 MG TABLET (UD) PO ONE (10:17)
[2019-02-20] MEDS ORDERED: predniSONE 10 MG TABLET (UD) PO ONE (12:03)
--- NOTE | 2019-02-20 17:47 | PN ---
Psychiatric Progress Note Vital Signs: Vital Signs Period Temp Pulse Resp BP Sys/Lan Pulse Ox Last 24 Hr 98.0 F 77 18-18 106/68 Date of Session: 02/20/19 Chief Complaint:: " Zoloft keeps me up." HPI: Patient admitted to [facility] for inpatient rehabilitation treatment for alcohol, cocaine and cannabis dependence. Consultation ordered for request of zoloft to be given in the morning. ROS: Patient is coherent, alert, + oriented. X3. Current Medications: Active Medications Generic Name Dose Route Start Last Admin Trade Name Freq PRN Reason Stop Dose Admin Acetaminophen 650 mg 02/09/19 19:10 Tylenol - PO Q4H PRN FEVER Al Hydroxide/Mg Hydroxide 30 ml 02/09/19 19:10 02/13/19 13:09 Mylanta Oral Suspension - PO 30 ml Q6H PRN Administration DYSPEPSIA Albuterol Sulfate 2 puff 02/10/19 12:09 Ventolin Hfa Inhaler - IH QID PRN WHEEZING Chlorhexidine Gluconate 15 ml 02/14/19 10:00 02/20/19 09:41 Chlorhexidine Gluconate MM Not Given BID NASH Eucalyptus/Menthol/Phenol/Sorbitol 1 each 02/09/19 19:10 Cepastat Lozenge - MM Q4H PRN SORE THROAT Famotidine 10 mg 02/11/19 22:00 02/20/19 09:41 [employer] 2[employer] PO 10 mg BID NASH Administration Guaifenesin 10 ml 02/09/19 19:10 Robitussin - PO Q6H PRN COUGH Hydroxyzine Pamoate 50 mg 02/11/19 10:29 02/13/19 21:25 Vistaril - PO 50 mg Q4H PRN Administration ANXIETY Loperamide HCl 4 mg 02/09/19 19:10 02/16/19 07:23 Imodium - PO 4 mg Q6H PRN Administration DIARRHEA Magnesium Citrate 300 ml 02/09/19 19:10 Citroma - PO Q48H PRN CONSTIPATION Magnesium Hydroxide 30 ml 02/09/19 19:10 Milk Of Magnesia - PO DAILY PRN CONSTIPATION Melatonin 5 mg 02/09/19 22:00 02/19/19 21:35 Melatonin PO 5 mg HS PRN Administration INSOMNIA Montelukast Sodium 10 mg 02/10/19 22:00 02/19/19 21:35 Singulair - PO 10 mg HS NASH Administration Naproxen 500 mg 02/14/19 08:54 02/19/19 16:52 Naprosyn - PO 500 mg BID PRN Administration PAIN LEVEL 6-10 Nicotine Polacrilex 4 mg 02/13/19 12:16 02/18/19 17:06 Nicorette Gum - BUC 4 mg Q2H PRN Administration NICOTINE REPLACEMENT RX Oxybutynin Chloride 10 mg 02/10/19 10:00 02/20/19 09:42 Ditropan - PO 10 mg DAILY NASH Administration Prednisone 20 mg 02/21/19 10:00 Deltasone - PO DAILY NASH Multivit/Folic Acid/Iron 1 tab 02/10/19 10:00 02/20/19 09:42 Vitamins (Sjr) - PO 1 tab DAILY NASH Administration Pseudoephedrine/Triprolidine 1 combo 02/09/19 19:10 Actifed - PO TID PRN NASAL CONGESTION Quetiapine Fumarate 200 mg 02/10/19 22:00 02/20/19 09:42 Seroquel - PO 200 mg BID NASH Administration Sertraline HCl 200 mg 02/21/19 10:00 Zoloft - PO DAILY NASH Thiamine HCl 100 mg 02/09/19 22:00 02/19/19 21:35 Vitamin B1 - PO 100 mg HS NASH Administration Medication(s) Change(s): Yes. Will d/c zoloft 100mg BID @ 1000, [id number]. Will order zoloft 200mg daily. Current Side Effect: No Lab tests ordered: No Lab tests reviewed: Yes Provider note:: Patient seen by Dr. De La Vega. Dr. De La Vega's note read and appreciated. Patient is prescribed zoloft 100mg BID @ 1000, 1700. States that the zoloft keeps her awake and is requesting to take the medication in the morning. As per patient she takes her zoloft dose in the morning when at home. Will d/c current order of zoloft and will order zoloft 200mg daily. Verbal consent given. Total face to face time:: 25 Mental Status Exam - Mental Status Exam Alert and Oriented to: Time, Place, Person Cognitive Function: Good Patient Appearance: Well Groomed Mood: Euthymic Affect: Appropriate Patient Behavior: Appropriate, Cooperative Speech Pattern: Clear, Appropriate Voice Loudness: Normal Thought Process: Goal Oriented Thought Disorder: Not Present Hallucinations: Denies Suicidal Ideation: Denies Homicidal Ideation: Denies Insight/Judgement: Poor Sleep: Fair Appetite: Fair Muscle strength/Tone: Normal Gait/Station: Normal Psychiatric Treatment Plan - Problem List (1) Alcohol dependence Current Visit: Yes (2) Cocaine dependence Current Visit: Yes (3) Substance-induced anxiety disorder Current Visit: Yes (4) Substance-induced sleep disorder Current Visit: Yes (5) Bipolar II disorder Current Visit: No (6) Cannabis dependence Current Visit: Yes (7) Nicotine dependence Current Visit: Yes Qualifiers: Nicotine product type: cigarettes Substance use status: in withdrawal Qualified Code(s): F17.213 - Nicotine dependence, cigarettes, with withdrawal
[2019-02-20] MEDS: THIAMINE HCL 100 MG TABLET (FP) PO SCH (21:48)
[2019-02-20] MEDS: MONTELUKAST NA 10 MG TABLET PO SCH (21:49)
[2019-02-20] MEDS: NAPROXEN 500 MG TABLET (FP) PO PRN (21:49)
[2019-02-21] MEDS: QUEtiapine FUMARATE 200 MG TABLET PO SCH ×2 (09:29→21:47)
[2019-02-21] MEDS: OXYBUTYNIN CHLORIDE 5 MG TABLET PO SCH (09:29)
[2019-02-21] MEDS: PRENATAL VITAMINS W/ FOLIC ACID TABLET (FP) PO SCH (09:29)
[2019-02-21] MEDS: FAMOTIDINE 10 MG TABLET PO SCH ×2 (09:30→21:48)
[2019-02-21] MEDS: CHLORHEXIDINE GLUCONATE 118 ML MOUTHWASH MM SCH ×2 (09:30→21:48)
[2019-02-21] MEDS ORDERED: predniSONE 10 MG TABLET (UD) PO SCH (10:00)
[2019-02-21] MEDS ORDERED: predniSONE 20 MG TABLET (UD) PO SCH (10:00)
[2019-02-21] MEDS ORDERED: SERTRALINE HCL 50 MG TABLET (FP) PO SCH (10:00)
[2019-02-21] MEDS ORDERED: PT OWN MED DRAWER 7, Y5N ONE (10:37)
--- NOTE | 2019-02-21 14:14 | PN ---
S Progress Note Note: Psychiatric nurse practitioner note: Patient scheduled for discharge tomorrow. A 30 day prescription of Zoloft 200mg + Seroquel 200mg BID was electronically sent to [facility], [address] [place], [place] [id number].
--- NOTE | 2019-02-21 15:00 | PREP.REFER ---
HIV PrEP/PEP - PrEP HIV Risk Assessment When was your last HIV test?: 01/2019-negative Are you concerned about any sexual encounters past 6 months?: Yes (Concerned that her partner may not be monogomous.) Have you had a STI in the last 6 months?: No Have you shared needles or other equipment?: No Are you interested in daily medication to help prevent HIV?: Yes Recommendation: Consider PrEP referral
--- NOTE | 2019-02-21 15:01 | DS ---
[facility] Rehab Discharge Summary - [facility] Rehab Discharge Summary Admission Date: 02/09/19 Discharge Date: 02/22/19 - History Present History: Alcohol dependence, Cannabis dependence, Cocaine dependence Pertinent Past History: 48 y/o F with history of alcohol, cocaine and marijuana use. PT has been using alcohol and marijuana for 32 yrs and has been using cocaine for about 18 yrs. On weekly basis, she drinks about 1 pint of vodka daily, smokes about 10 bags of cocaine daily and smokes about 4 marijuana joints every other day. No history of blackouts, alcohol worsens her seizures. last seizure was 2 months ago as she was drinking heavy( 1/2 gallon every other day). had prior detox and rehab here at [facility]. Half pack of cigarettes a day for 32 yrs. Last drink was this morning and consisted of about half a pint of vodka. Last cocaine use was also today and consisted of 4 bags. no Injection PMH: Asthma, lupus, seizure disorder, and arthritis Psych: bipolar, anxiety, PTSD PSH: none Social Hx: lives with sister and retired and on pension - Discharge Physical Exam Vital Signs: Vital Signs Temperature 98.0 F 02/21/19 07:07 Pulse Rate 75 02/21/19 07:07 Respiratory Rate 18 02/21/19 07:07 Blood Pressure 108/70 02/21/19 07:07 O2 Sat by Pulse Oximetry (%) Pertinent Admission Physical Exam Findings: General: NAD HEENT: PERRLA, normocephalic LUNG: clear b HEART: s1 s2G Abdomen : +BS, MSK: full ROM, steady gait extremities: 2+ pulses, no edema neuro: grossly intact - Treatment Discharge Condition: Outpatient referral accepted (medically stable for discharge. Patient will return to [facility]) Hospital Course: patient attended groups, had 1:1 with her counselor, and was adherent to her medication regimen and treatment plan. - Medication Discharge Medications: Ambulatory Orders Oxybutynin Chloride 10 mg PO DAILY 02/15/17 Lamotrigine [LaMICtal -] 100 mg PO BID #60 tablet 08/29/17 Quetiapine Fumarate [Seroquel -] 200 mg PO BID #60 tablet 08/29/17 Sertraline HCl [Zoloft -] 100 mg PO BID #120 tablet 08/29/17 Albuterol Sulfate Inhaler - [Ventolin HFA Inhaler -] 2 inh PO QID PRN 02/06/19 Calcium Carb, Cit/Mag Cit, Gly [Localnesium Tablet] 1 each PO BID 02/06/19 Montelukast Na [Singulair -] 10 mg PO BID 02/06/19 predniSONE [Deltasone -] 10 mg PO BID #30 tablet 02/06/19 Chlorhexidine Gluconate 15 ml MM BID #1 bottle 02/21/19 Quetiapine Fumarate [Seroquel -] 200 mg PO BID #60 tablet 02/21/19 Sertraline HCl [Zoloft -] 200 mg PO DAILY #120 tablet 02/21/19 predniSONE [Deltasone -] 20 mg PO DAILY #30 tablet 02/21/19 - Medication-Assisted Treatment (MAT) Medication-Assisted Treatment (MAT): No - Discharge Instructions Diet, activity, other medical instructions: Diet:as tolerated Activity: as tolerated Other medical instructions: Please follow up with aftercare referral. - Diagnosis (1) Alcohol dependence Current Visit: Yes Status: Chronic (2) Cannabis dependence Current Visit: Yes Status: Chronic (3) Cocaine dependence Current Visit: Yes Status: Chronic - Follow-up Referral Minutes to complete discharge: 20 - AMA Did Patient Leave Against Medical Advice: No
[2019-02-21] MEDS: MAG HYDROX/AL HYDROX/SIMETH 30 ML UNIT-DOSE CUP PO PRN (16:32)
[2019-02-21] MEDS: MONTELUKAST NA 10 MG TABLET PO SCH (21:47)
[2019-02-21] MEDS: THIAMINE HCL 100 MG TABLET (FP) PO SCH (21:47)
[2019-02-21] MEDS: NAPROXEN 500 MG TABLET (FP) PO PRN (21:47)
[2019-02-22 07:22] VITALS: BP 112/71; PULSE 85; TEMP 98.3
[2019-02-22] MEDS ORDERED: PT OWN MED DRAWER 7, Y5N ONE (08:38)
== END 2019-02-22 08:46 | disposition home or self-care (01) | DRG 772 ==
LOC: YASAS 12:43 → Y3E 12:44
PROVIDERS: ADMIT Neuromusculoskeletal Medicine & OMM; ATTEND Neuromusculoskeletal Medicine & OMM
PROC: HZ42ZZZ Group Counseling for Substance Abuse Treatment, Cognitive-Behavioral (ICD-10-PCS; principal; 2019-02-09)
DX: F10.20 Alcohol dependence, uncomplicated (principal); F14.20 Cocaine dependence, uncomplicated; F12.20 Cannabis dependence, uncomplicated; F17.213 Nicotine dependence, cigarettes, with withdrawal; F19.280 Other psychoactive substance dependence with psychoactive substance-induced anxiety disorder; F19.282 Other psychoactive substance dependence with psychoactive substance-induced sleep disorder; F31.81 Bipolar II disorder; J45.909 Unspecified asthma, uncomplicated; M32.9 Systemic lupus erythematosus, unspecified; G40.909 Epilepsy, unspecified, not intractable, without status epilepticus; K08.9 Disorder of teeth and supporting structures, unspecified; K21.9 Gastro-esophageal reflux disease without esophagitis; N32.81 Overactive bladder; M79.7 Fibromyalgia; M06.9 Rheumatoid arthritis, unspecified

== ENCOUNTER 2021-05-10 15:30 | Inpatient (IN) | payer OTHER ==
[2021-05-10 16:58] VITALS: BMI 26.4
[2021-05-10] MEDS ORDERED: guaiFENesin 200 MG/10 ML 10 ML UNIT-DOSE CUPS PO PRN ×2 (18:09→19:27)
[2021-05-10] MEDS ORDERED: P-EPHED 60MG/TRIPROLIDI 2.5MG TABLET PO PRN ×2 (18:09→19:27)
[2021-05-10] MEDS ORDERED: MAGNESIUM CITRATE 300 ML BOTTLE PO PRN ×2 (18:09→19:27)
[2021-05-10] MEDS ORDERED: MAGNESIUM HYDROX 2400MG/30ML ORAL SUSPENSION 30 ML CUP PO PRN ×2 (18:09→19:27)
[2021-05-10] MEDS ORDERED: LOPERAMIDE HCL 2 MG CAPSULE PO PRN ×2 (18:09→19:27)
[2021-05-10] MEDS ORDERED: MENTHOL/PHENOL 1 EACH UD MM PRN ×2 (18:09→19:27)
[2021-05-10] MEDS ORDERED: MAG HYDROX/AL HYDROX/SIMETH 30 ML UNIT-DOSE CUP PO PRN ×2 (18:09→19:27)
[2021-05-10] MEDS ORDERED: NICOTINE 10 MG CARTRIDGE (INHALER) IH PRN ×2 (18:09→19:27)
[2021-05-10] MEDS ORDERED: IBUPROFEN 400 MG TABLET (FP) PO PRN ×2 (18:09→19:27)
[2021-05-10] MEDS ORDERED: ACETAMINOPHEN 325 MG TABLET (FP) PO PRN ×3 (18:09→19:27)
[2021-05-10] MEDS ORDERED: ALBUTEROL SO4 HFA INHALER IH PRN (18:11)
[2021-05-10] MEDS ORDERED: NICOTINE POLACRILEX 2 MG GUM BUC PRN (18:11)
[2021-05-10] MEDS ORDERED: chlordiazePOXIDE HCL 25 MG CAPSULE PO PRN (18:12)
[2021-05-10] MEDS ORDERED: NALOXONE (NARCAN) HCL 4 MG/0.1 ML SPRAY NS PRN (19:27)
[2021-05-10] MEDS ORDERED: hydrOXYzine PAMOATE 25 MG CAPSULE (FP) PO PRN (19:27)
[2021-05-10] MEDS ORDERED: BISMUTH SUBSALICYLATE 524 MG/30 ML PO PRN (19:27)
[2021-05-10] MEDS ORDERED: NALOXONE HCL 0.4 MG/ML VIAL IM PRN (19:27)
[2021-05-10] MEDS ORDERED: METHOCARBAMOL 500 MG TABLET PO PRN (19:27)
[2021-05-10] MEDS ORDERED: ONDANSETRON *ODT* 4 MG TABLET SL PRN (19:27)
[2021-05-10] MEDS ORDERED: MELATONIN 5 MG TABLETS PO SCH (22:00)
[2021-05-10] MEDS ORDERED: THIAMINE HCL 100 MG TABLET (FP) PO SCH (22:00)
[2021-05-10] MEDS ORDERED: hydrOXYzine PAMOATE 25 MG CAPSULE (FP) PO SCH (22:00)
[2021-05-10] MEDS: MELATONIN 5 MG TABLETS PO SCH (22:42)
[2021-05-10] MEDS: THIAMINE HCL 100 MG TABLET (FP) PO SCH (22:42)
[2021-05-10] MEDS: chlordiazePOXIDE HCL 25 MG CAPSULE PO SCH (22:43)
[2021-05-10] MEDS: AMMONIUM LACTATE 12% LOTION 225 GM BOTTLE TP SCH (23:01)
[2021-05-11] MEDS: chlordiazePOXIDE HCL 25 MG CAPSULE PO SCH ×5 (05:35→22:50)
[2021-05-11 10:00] LABS: HEMATOCRIT 42.3 % (32.4-45.2); HEMOGLOBIN 14.4 GM/dL (10.7-15.3); MCH 30.7 pg (25.7-33.7); MEAN CELL VOLUME 90.2 fl (80-96); MEAN PLT VOLUME 8.7 fl (7.5-11.1); PLATELET COUNT 338 10^3/uL (134-434); RBC 4.69 M/mm3 (3.60-5.2); RDW 13.8 % (11.6-15.6); WHITE BLOOD COUNT 5.9 K/mm3 (4.0-10.0)
[2021-05-11] MEDS ORDERED: PRENATAL VITAMINS W/ FOLIC ACID TABLET (FP) PO SCH (10:00)
[2021-05-11] MEDS ORDERED: lamoTRIgine 100 MG TABLET PO SCH ×2 (10:00)
[2021-05-11 10:06] LABS: CALCIUM 9.5 mg/dL (8.5-10.1)
[2021-05-11 10:07] LABS: ALBUMIN 3.2 g/dl (3.4-5.0); BLOOD UREA NITROGEN 9.5 mg/dL (7-18)
[2021-05-11 10:10] LABS: CREATININE 0.6 mg/dL (0.55-1.3)
[2021-05-11 10:11] LABS: BILIRUBIN,TOTAL 0.8 mg/dL (0.2-1); TOT PROT 6.8 g/dl (6.4-8.2)
[2021-05-11] MEDS: AMMONIUM LACTATE 12% LOTION 225 GM BOTTLE TP SCH ×2 (11:33→22:51)
[2021-05-11] MEDS: PRENATAL VITAMINS W/ FOLIC ACID TABLET (FP) PO SCH (11:34)
[2021-05-11 13:04] LABS: HIV INTERPRETATION NEGATIVE (NEGATIVE)
[2021-05-11] MEDS ORDERED: ALBUTEROL SO4 HFA INHALER IH PRN (13:41)
[2021-05-11] MEDS ORDERED: lamoTRIgine 100 MG TABLET PO ONE (15:15)
[2021-05-11] MEDS: THIAMINE HCL 100 MG TABLET (FP) PO SCH (22:49)
[2021-05-11] MEDS: lamoTRIgine 100 MG TABLET PO SCH (22:49)
[2021-05-11] MEDS: MELATONIN 5 MG TABLETS PO SCH (22:50)
[2021-05-12] MEDS: chlordiazePOXIDE HCL 25 MG CAPSULE PO SCH ×4 (05:41→22:40)
[2021-05-12] MEDS: lamoTRIgine 100 MG TABLET PO SCH ×2 (10:28→22:40)
[2021-05-12] MEDS: PRENATAL VITAMINS W/ FOLIC ACID TABLET (FP) PO SCH (10:29)
[2021-05-12] MEDS: MONTELUKAST NA 10 MG TABLET PO SCH (10:29)
[2021-05-12] MEDS: AMMONIUM LACTATE 12% LOTION 225 GM BOTTLE TP SCH ×2 (10:30→22:36)
[2021-05-12 14:08] LABS: URINE APPEARANCE CLEAR; URINE BILIRUBIN NEGATIVE (NEGATIVE); URINE COLOR YELLOW; URINE GLUCOSE (UA) NEGATIVE (NEGATIVE); URINE KETONE NEGATIVE (NEGATIVE); URINE LEUK ESTERASE NEGATIVE (NEGATIVE); URINE NITRITE NEGATIVE (NEGATIVE); URINE PROTEIN NEGATIVE (NEGATIVE); URINE UROBILINOGEN 0.2 mg/dL (0.2-1.0)
[2021-05-12] MEDS: MELATONIN 5 MG TABLETS PO SCH (22:39)
[2021-05-12] MEDS: THIAMINE HCL 100 MG TABLET (FP) PO SCH (22:39)
[2021-05-13] MEDS ORDERED: chlordiazePOXIDE HCL 10 MG CAPSULE PO PRN
[2021-05-13] MEDS: chlordiazePOXIDE HCL 10 MG CAPSULE PO SCH ×4 (06:53→22:58)
[2021-05-13] MEDS: AMMONIUM LACTATE 12% LOTION 225 GM BOTTLE TP SCH ×2 (10:11→22:57)
[2021-05-13] MEDS: MONTELUKAST NA 10 MG TABLET PO SCH (10:12)
[2021-05-13] MEDS: PRENATAL VITAMINS W/ FOLIC ACID TABLET (FP) PO SCH (10:12)
[2021-05-13] MEDS: lamoTRIgine 100 MG TABLET PO SCH ×2 (10:13→22:58)
[2021-05-13 14:08] LABS: SARS-CoV-2 NAA Not Detected (Not Detected)
[2021-05-13] MEDS: THIAMINE HCL 100 MG TABLET (FP) PO SCH (22:57)
[2021-05-13] MEDS: MELATONIN 5 MG TABLETS PO SCH (22:58)
[2021-05-14] MEDS ORDERED: chlordiazePOXIDE HCL 10 MG CAPSULE PO SCH (05:00)
[2021-05-14 08:52] VITALS: BP 114/73; PULSE 92; TEMP 96.5
[2021-05-14] MEDS: MONTELUKAST NA 10 MG TABLET PO SCH (10:27)
[2021-05-14] MEDS: AMMONIUM LACTATE 12% LOTION 225 GM BOTTLE TP SCH (10:27)
[2021-05-14] MEDS: lamoTRIgine 100 MG TABLET PO SCH (10:27)
[2021-05-14] MEDS: PRENATAL VITAMINS W/ FOLIC ACID TABLET (FP) PO SCH (10:27)
[2021-05-15] MEDS ORDERED: chlordiazePOXIDE HCL 10 MG CAPSULE PO ONE (05:00)
== END 2021-05-14 12:39 | disposition home or self-care (01) | DRG 774 ==
LOC: YASAS 15:30 → Y3N 21:22
PROVIDERS: ADMIT Allergy & Immunology; ATTEND Allergy & Immunology
PROC: HZ2ZZZZ Detoxification Services for Substance Abuse Treatment (ICD-10-PCS; principal; 2021-05-10)
DX: F10.230 Alcohol dependence with withdrawal, uncomplicated (principal); F14.20 Cocaine dependence, uncomplicated; F17.210 Nicotine dependence, cigarettes, uncomplicated; F19.282 Other psychoactive substance dependence with psychoactive substance-induced sleep disorder; F31.81 Bipolar II disorder; G40.909 Epilepsy, unspecified, not intractable, without status epilepticus; J45.909 Unspecified asthma, uncomplicated; M32.9 Systemic lupus erythematosus, unspecified; M06.9 Rheumatoid arthritis, unspecified; M79.7 Fibromyalgia; M54.30 Sciatica, unspecified side; M17.0 Bilateral primary osteoarthritis of knee; Z96.651 Presence of right artificial knee joint; R26.89 Other abnormalities of gait and mobility; Z99.89 Dependence on other enabling machines and devices; Z87.19 Personal history of other diseases of the digestive system
CPT/HCPCS: 36415; 80053; 81003; 81025; 85027; 86780; 87389; 87811; C9803; U0003; U0005